=== PATIENT | male | born 1965 | race Caucasian/White ===

== ENCOUNTER 2023-01-16 04:35 | Inpatient (IN) | payer MEDICAID ==
[~2023-01-16] VITALS: Ht 188 cm; Wt 141.8 kg
[2023-01-16] MEDS ORDERED: niCARDipine-NS 40mg/200ml IVPB 200 ML IV PRN (05:10)
[2023-01-16 05:13] LABS: BASOPHILS # (AUTO) 0.1 X10'3 (0-0.2); BASOPHILS % (AUTO) 0.9 % (0-1); EOSINOPHILS # (AUTO) 0.1 X10'3 (0-0.9); EOSINOPHILS % (AUTO) 0.7 % (0-6); HEMATOCRIT 44.6 % (42.0-52.0); HEMOGLOBIN 14.5 g/dl (14.0-17.9); LYMPHOCYTES # (AUTO) 1.7 X10'3 (1.1-4.8); LYMPHOCYTES % (AUTO) 20.2 % (21-51); MEAN CORPUSCULAR HEMOGLOBIN 29.6 PG (27.0-31.0); MEAN CORPUSCULAR HGB CONC 32.5 g/dL (33.0-36.5); MEAN CORPUSCULAR VOLUME 91.1 FL (78-98); MEAN PLATELET VOLUME 6.7 FL (7.4-10.4); MONOCYTES # (AUTO) 0.7 X10'3 (0-0.9); MONOCYTES % (AUTO) 8.3 % (2-12); NEUTROPHILS # (AUTO) 5.9 X10'3 (1.8-7.7); NEUTROPHILS % (AUTO) 69.9 % (42-75); PLATELET COUNT 258 X10'3 (140-440); RED BLOOD COUNT 4.89 X10'6 (4.70-6.10); WHITE BLOOD COUNT 8.4 X10'3 (4.5-11.0)
[2023-01-16 05:36] LABS: ALANINE AMINOTRANSFERASE 25 U/L (12-78); ALBUMIN 2.9 G/DL (3.4-5.0); ALBUMIN/GLOBULIN RATIO 0.6 (1.1-1.5); ALKALINE PHOSPHATASE 94 IU/L (46-116); ANION GAP 9 (8-16); ASPARTATE AMINO TRANSFERASE 16 U/L (10-37); BILIRUBIN,TOTAL 0.7 MG/DL (0.1-1.0); BLOOD UREA NITROGEN 18 MG/DL (7-18); BUN/CREATININE RATIO 18.4 (5.4-32.0); CALCIUM 9.3 MG/DL (8.5-10.1); CHLORIDE 102 MMOL/L (99-107); CREATININE 0.98 MG/DL (0.60-1.10); GLUCOSE 171 MG/DL (70-104); POTASSIUM 4.2 MMOL/L (3.5-5.1); SODIUM 138 MMOL/L (135-145); TOTAL PROTEIN 7.4 G/DL (6.4-8.2); eGFR 79 ML/MIN
[2023-01-16] MEDS ORDERED: proCHLORperazine 10 MG/2 ml inj IV ONE (05:40)
[2023-01-16] MEDS ORDERED: acetaminophen 325mg tablet PO ONE (05:40)
--- NOTE | 2023-01-16 05:57 | NUR ---
Per provider, target systolic 170 initial hour of nicardipine initiation.
[2023-01-16] MEDS ORDERED: CHOL100046 PO (06:05)
[2023-01-16] MEDS ORDERED: SPIR25TA5 PO (06:06)
[2023-01-16] MEDS ORDERED: OLME20TA74 PO (06:06)
[2023-01-16] MEDS ORDERED: METO-384 PO (06:06)
[2023-01-16] MEDS ORDERED: ASPI81TA52 PO (06:07)
--- NOTE | 2023-01-16 06:30 | NUR ---
pt sleeping on his left side without any complaints, nicardipine is currently running at 5mg/hr with a good effect on his BP, 151/102. 94% nasal cannula at 3L, will continue to monitor.
[2023-01-16] MEDS ORDERED: potassium Cl 20 mEq SR tablet PO PRN ×2 (08:15)
[2023-01-16] MEDS ORDERED: potassium Cl 40MEQ/1/2NS 520ml 520 ML IV PRN (08:15)
[2023-01-16] MEDS ORDERED: magnesium Cl slow-release 64mg tablet PO PRN (08:15)
[2023-01-16] MEDS ORDERED: magnesium 4gm in 100ml NS 100 ML IV PRN (08:15)
[2023-01-16] MEDS ORDERED: acetaminophen 325mg tablet PO PRN ×2 (08:15→15:20)
[2023-01-16 08:49] LABS: MAGNESIUM 1.9 MG/DL (1.5-2.4)
[2023-01-16] MEDS ORDERED: EMPA25TA PO (11:34)
[2023-01-16] MEDS ORDERED: ATOR-2 PO (11:34)
--- NOTE | 2023-01-16 11:37 | NUR ---
Patient in room ED 6. I have received report from Kenneth in the ED and had the opportunity to ask questions and assume patient care.
[2023-01-16] MEDS ORDERED: PERFLUTREN PROTEIN-A MICROSPHR (Optison) 0.22 MG/ML 3ML VIAL IV ONE (12:00)
[2023-01-16 12:10] VITALS: BP 117/89
--- NOTE | 2023-01-16 12:22 | NUR ---
PAGER ID: [phone] MESSAGE: RE: Susan in [id number], received from ED, pt has c/o severe cramping in his side, please advise Georgiana
--- NOTE | 2023-01-16 12:33 | NUR ---
Spoke with hospitalist, advised patient's abdominal area cramping seemed to have resolved. Order received -okay to stop Cardene drip. Patient resting now.
[2023-01-16] MEDS: aspirin 81mg, enteric-coated 1 TAB TABLET.DR PO SCH (12:47)
[2023-01-16 12:48] VITALS: BP 117/76
[2023-01-16] MEDS: spironolactone 25 MG tablet PO SCH (12:50)
--- NOTE | 2023-01-16 14:00 | NUR ---
Re: Susan, per color television console monitor, pt has been SR with PVCs and an alternating BBB, sandor Stoner
--- NOTE | 2023-01-16 15:11 | NUR ---
Re: Susan in , he has tylenol for fever, not pain for headache, please advise, Thank you Georgiana
--- NOTE | 2023-01-16 17:03 | NUR ---
Student documentation: [facility] student Mindy I have reviewed and agree with all interventions, medication administration per hospital policy, and assessments performed and documented by student Mindy.
[2023-01-16 18:00] VITALS: BP_SYST 117; BP_SYST 147; BP_DIAS 100; BP_DIAS 76
--- NOTE | 2023-01-16 18:10 | NUR ---
Problems reprioritized. Patient report given, questions answered & plan of care reviewed with Sandra.
[2023-01-16] MEDS: docusate sod 100mg capsule PO SCH (20:00)
[2023-01-16] MEDS: K and/or MAG REPLACEMENT MC SCH (20:00)
[2023-01-16] MEDS: morphine 2 MG/ML inj. syringe IV PRN (20:59)
[2023-01-16 22:00] VITALS: BP 137/84
[2023-01-17 03:00] VITALS: BP 143/94
[2023-01-17 06:00] VITALS: BP 116/89
--- NOTE | 2023-01-17 07:05 | NUR ---
Patient in room PCU 3014. I have received report from Johana and had the opportunity to ask questions and assume patient care.
--- NOTE | 2023-01-17 07:21 | NUR ---
Problems reprioritized. Patient report given, questions answered & plan of care reviewed with Georgiana BOYD.
[2023-01-17 07:25] LABS: BASOPHILS % (AUTO) 0.4 % (0-1); EOSINOPHILS # (AUTO) 0.1 X10'3 (0-0.9); HEMATOCRIT 46.3 % (42.0-52.0); HEMOGLOBIN 15.3 g/dl (14.0-17.9); LYMPHOCYTES # (AUTO) 1.8 X10'3 (1.1-4.8); LYMPHOCYTES % (AUTO) 21.2 % (21-51); MEAN CORPUSCULAR HEMOGLOBIN 30.2 PG (27.0-31.0); MEAN CORPUSCULAR HGB CONC 33.1 g/dL (33.0-36.5); MEAN CORPUSCULAR VOLUME 91.3 FL (78-98); MEAN PLATELET VOLUME 6.7 FL (7.4-10.4); MONOCYTES # (AUTO) 0.7 X10'3 (0-0.9); MONOCYTES % (AUTO) 8.4 % (2-12); NEUTROPHILS # (AUTO) 5.9 X10'3 (1.8-7.7); PLATELET COUNT 254 X10'3 (140-440); RED BLOOD COUNT 5.07 X10'6 (4.70-6.10); WHITE BLOOD COUNT 8.6 X10'3 (4.5-11.0)
[2023-01-17 07:47] LABS: ALBUMIN 2.9 G/DL (3.4-5.0); ANION GAP 7 (8-16); BLOOD UREA NITROGEN 15 MG/DL (7-18); BUN/CREATININE RATIO 15.5 (5.4-32.0); CALCIUM 9.2 MG/DL (8.5-10.1); CHLORIDE 102 MMOL/L (99-107); CREATININE 0.97 MG/DL (0.60-1.10); GLUCOSE 140 MG/DL (70-104); MAGNESIUM 1.8 MG/DL (1.5-2.4); POTASSIUM 4.3 MMOL/L (3.5-5.1); SODIUM 137 MMOL/L (135-145); eGFR 79 ML/MIN
[2023-01-17] MEDS: K and/or MAG REPLACEMENT MC SCH ×2 (08:00→18:50)
[2023-01-17] MEDS: furosemide 40mg/4ml inj IV SCH (08:17)
[2023-01-17] MEDS: docusate sod 100mg capsule PO SCH ×2 (08:18→18:50)
[2023-01-17] MEDS: spironolactone 25 MG tablet PO SCH (08:18)
[2023-01-17] MEDS: metoprolol succinate 25mg (24-HOUR) SR. Tablet PO SCH (08:19)
[2023-01-17] MEDS: aspirin 81mg, enteric-coated 1 TAB TABLET.DR PO SCH (08:19)
[2023-01-17] MEDS: losartan 50mg tablet PO SCH (08:19)
[2023-01-17] MEDS: morphine 2 MG/ML inj. syringe IV PRN ×2 (08:30→15:55)
[2023-01-17 09:00] VITALS: BP 150/103
--- NOTE | 2023-01-17 11:31 | NUR ---
DAYAN Davis in , having c/o cramping pain in L rib area, has become very agitated, too soon for more ordered morphine, please advise Georgiana
[2023-01-17] MEDS: cyclobenzaprine 10mg tablet PO PRN (12:00)
--- NOTE | 2023-01-17 13:57 | NUR ---
patient has c/o pain in his left rib area, sig. other arrived, requesting more/other pain meds due to patient's large habitus, patient is quite irritable, ripped off gown, tele box, will not let RN attempt to discuss options/alternatives
--- NOTE | 2023-01-17 13:58 | NUR ---
Patient became more agitated, demanding a new gown/clean up after urinating on himself and the floor. Patient complained that staff had replaced the lid on the urinal so he could not get it off therefore he urinated on himself. Earlier, patient complained that he "spilled" urine all over himself and the floor because he filled them too full. 3 different urinals were only partially with 300 mLs. Patient became quite unruly and unpleasant with staff before falling back asleep.
[2023-01-17 14:03] VITALS: BP 150/69
[2023-01-17 18:00] VITALS: BP 135/94
--- NOTE | 2023-01-17 18:37 | NUR ---
Problems reprioritized. Patient report given, questions answered & plan of care reviewed with Daphnie.
[2023-01-18 06:42] LABS: BASOPHILS % (AUTO) 0.2 % (0-1); EOSINOPHILS # (AUTO) 0.1 X10'3 (0-0.9); EOSINOPHILS % (AUTO) 0.7 % (0-6); HEMATOCRIT 49.5 % (42.0-52.0); HEMOGLOBIN 16.5 g/dl (14.0-17.9); LYMPHOCYTES # (AUTO) 2.1 X10'3 (1.1-4.8); LYMPHOCYTES % (AUTO) 25.3 % (21-51); MEAN CORPUSCULAR HEMOGLOBIN 30.6 PG (27.0-31.0); MEAN CORPUSCULAR HGB CONC 33.3 g/dL (33.0-36.5); MEAN CORPUSCULAR VOLUME 91.9 FL (78-98); MEAN PLATELET VOLUME 6.9 FL (7.4-10.4); MONOCYTES # (AUTO) 0.7 X10'3 (0-0.9); NEUTROPHILS # (AUTO) 5.3 X10'3 (1.8-7.7); NEUTROPHILS % (AUTO) 64.8 % (42-75); PLATELET COUNT 278 X10'3 (140-440); RED BLOOD COUNT 5.39 X10'6 (4.70-6.10); RED CELL DISTRIBUTION WIDTH 15.4 % (11.5-14.5); WHITE BLOOD COUNT 8.2 X10'3 (4.5-11.0)
[2023-01-18 07:06] LABS: ANION GAP 7 (8-16); BLOOD UREA NITROGEN 25 MG/DL (7-18); BUN/CREATININE RATIO 21.9 (5.4-32.0); CALCIUM 9.5 MG/DL (8.5-10.1); CHLORIDE 102 MMOL/L (99-107); CREATININE 1.14 MG/DL (0.60-1.10); GLUCOSE 145 MG/DL (70-104); MAGNESIUM 2.1 MG/DL (1.5-2.4); POTASSIUM 4.4 MMOL/L (3.5-5.1); SODIUM 136 MMOL/L (135-145); TOTAL CARBON DIOXIDE 27.3 MMOL/L (24-32); eGFR 66 ML/MIN
[2023-01-18 07:53] VITALS: BP 132/83
[2023-01-18] MEDS: K and/or MAG REPLACEMENT MC SCH ×2 (08:00→20:00)
[2023-01-18] MEDS: aspirin 81mg, enteric-coated 1 TAB TABLET.DR PO SCH (08:46)
[2023-01-18] MEDS: docusate sod 100mg capsule PO SCH ×2 (08:46→20:00)
[2023-01-18] MEDS: losartan 50mg tablet PO SCH (08:47)
[2023-01-18] MEDS: metoprolol succinate 25mg (24-HOUR) SR. Tablet PO SCH (08:47)
[2023-01-18] MEDS: furosemide 40mg/4ml inj IV SCH (08:47)
[2023-01-18] MEDS: spironolactone 25 MG tablet PO SCH (08:48)
[2023-01-18] MEDS: cyclobenzaprine 10mg tablet PO PRN (09:56)
[2023-01-18] MEDS: morphine 2 MG/ML inj. syringe IV PRN (10:16)
[2023-01-18] MEDS ORDERED: CYCL-1 PO (10:45)
[2023-01-18 11:05] VITALS: BP 105/66
[2023-01-18] MEDS ORDERED: FURO-150 PO (12:58)
[2023-01-18 15:29] VITALS: BP 141/85
[2023-01-18] MEDS ORDERED: LISI2.5T14 PO (19:30)
[2023-01-18] MEDS ORDERED: HYDROcodone/acetaminophen 5mg/325mg tablet PO ONE (21:00)
== END 2023-01-18 22:00 | disposition home or self-care (01) | DRG 133 ==
LOC: ER 04:36 → ED HOLD 08:17 → EDBEDREQ 11:09 → PCU 3S 12:18
PROVIDERS: ADMIT Internal Medicine; ATTEND Internal Medicine
DX: J96.00 Acute respiratory failure, unspecified whether with hypoxia or hypercapnia (principal); I21.A1 Myocardial infarction type 2; I50.23 Acute on chronic systolic (congestive) heart failure; N17.9 Acute kidney failure, unspecified; I11.0 Hypertensive heart disease with heart failure; F17.210 Nicotine dependence, cigarettes, uncomplicated; E66.01 Morbid (severe) obesity due to excess calories; G89.29 Other chronic pain; I44.7 Left bundle-branch block, unspecified; R25.2 Cramp and spasm; M54.9 Dorsalgia, unspecified; Z79.82 Long term (current) use of aspirin; I25.2 Old myocardial infarction; Z68.41 Body mass index [BMI] 40.0-44.9, adult; Z79.84 Long term (current) use of oral hypoglycemic drugs; Z91.14 Patient's other noncompliance with medication regimen; Z79.899 Other long term (current) drug therapy
CPT/HCPCS: 36415; 71045; 80048; 80053; 83735; 83880; 84484; 85025; 87081; 93005; 93308; 96365; 96375; 99285; A4615; G0378; J0780; J1940; J2270; J3490

== ENCOUNTER 2025-04-25 15:06 | Inpatient (IN) | payer MEDICAID ==
[~2025-04-25] VITALS: Ht 188 cm; Wt 136.4 kg
[~2025-04-25 15:06] MED LIST: ASPI81TA52 PO; ATOR-2 PO; CHOL100046 PO; CYCL-1 PO; EMPA25TA PO; FURO-150 PO; LISI2.5T14 PO; METO-384 PO; OLME20TA74 PO; SPIR25TA5 PO
--- NOTE | 2025-04-25 15:26 | Physician Documentation ---
History of Present Illness Chief Complaint: Abdominal Pain Stated Complaint: ABD PAIN Time Seen by MD: 15:23 HPI 59-year-old male, history of COPD, CHF, CAD, methamphetamine use, who is transferred from an outside hospital with concern for cholecystitis. The patient reportedly had upper abdominal pain, presented to the ER at an outside hospital and had an extensive workup. Ultrasound showed cholecystitis. His laboratory testing showed white blood cell count 8.9, bilirubin 1.9, AST 51, ALT 63. He also had an elevated BNP at 5310, does have history of CHF. He also was positive for methamphetamines. The outside hospital did not have a surgeon, and so he was transferred here for surgical consult. He also reportedly had a CT scan of his chest abdomen and pelvis, with no radiology report, but no acute findings identified on preliminary evaluation. Here in the ED, he continues to report pain in his upper abdomen. He is a difficult historian, reports a fluctuating history of abdominal pain. Denies significant nausea at this time. Denies shortness of breath or chest pain at this time. He is on oxygen, but states he normally does not use oxygen. Medication Reconciliation Allergies: Coded Allergies: No Known Allergies (Unverified , 01/16/23) Scheduled Aspirin (Aspirin EC), 1 TAB PO DAILY, (Reported) Atorvastatin Calcium (Atorvastatin Calcium), 1 TAB PO DAILY, (Reported) Cholecalciferol (Vitamin D3) (Vitamin D3), 2 CAP PO DAILY, (Reported) Empagliflozin (Jardiance), 1 TAB PO DAILY, (Reported) Furosemide (Lasix), 20 MG PO DAILY Lisinopril (Lisinopril), 1 TAB PO DAILY Metoprolol Succinate (Metoprolol Succinate), 1 TAB PO DAILY, (Reported) Olmesartan Medoxomil (Benicar), 1 TAB PO DAILY, (Reported) Spironolactone (Spironolactone), 1 TAB PO DAILY, (Reported) Scheduled PRN Cyclobenzaprine* (Cyclobenzaprine*), 10 MG PO Q8H PRN for muscle spasms Past Medical History Past Medical History: Congestive Heart Failure, Hypertension, Myocardial Infarction, *MUSCULOSKELETAL*, Chronic Back Pain, Extremity Fracture Past Surgical History: abdominal surgery, orthopedic surgeries Lives In: Home Review of Systems Constitutional: Denies: fever Respiratory: Denies: shortness of breath Cardiovascular: Denies: chest pain Gastrointestinal: Reports: abdominal pain, nausea; Denies: vomiting Physical Exam Vital Signs: Temperature: 98.5, Source: Oral, Heart Rate: 82, Respiratory Rate: 18, BP: 99/63, Pulse Oximetry: 94, Weight: 136.360 Oxygen Flow Rate: 4.0 Physical Exam General: This is a middle-aged man, lying quietly in bed when I enter the room, not in distress HEENT: Atraumatic, oropharynx appears dry Heart: Regular rate and rhythm, normal-appearing peripheral perfusion Lungs: Diminished breath sounds bilateral, normal work of breathing, normal oxygen saturation on nasal cannula oxygen Abdomen: Soft, obese abdomen. Generalized tenderness, worse in the upper abdomen. Well-healed surgical scar over the abdomen Neuro: Alert and oriented, no focal deficits Psychiatric: Calm and cooperative with exam Progress Results/Orders Results/Orders Vital Signs 04/25/25 15:14 Temp 98.5 Pulse 82 Resp 18 B/P (MAP) 99/63 Pulse Ox 94 O2 Flow Rate 4.0 Consults/PCP Consults/PCP : Additional Comment Consult: I consulted the general surgeon for evaluation for cholecystitis Consult: I spoke to the internal medicine service, for admission in the hospital Medical Decision Making Additional info obtained from: old records Findings Reviewed outside hospital records. The patient had an extensive workup, including blood work, ultrasound, CT scan. Ultrasound showed cholelithiasis with sonographic Boothe sign and gallbladder wall thickening with adjacent pericholecystic fluid, concerning for acute cholecystitis. Common bile duct not identified. Additional Comments The patient presents as a transfer from outside hospital for acute cholecystitis. I reviewed the outside hospital paperwork as above. Repeat labs do show elevated LFTs and he continues to have upper abdominal pain. General surgery consulted and he will be admitted to the medicine service for further treatment. He was given a dose of IV Zosyn, because it appears he did not receive antibiotics at the outside hospital. He was given pain medications. Admit. Departure Impression: Primary Impression: Acute cholecystitis Referrals: NO PRIMARY CARE PROVIDER (PCP) Signature Scribe Signature: na Attestation: ERICK Samuel MD Apr 25, 2025 15:26
[2025-04-25 16:08] LABS: BASOPHILS % (AUTO) 0.2 % (0-1); EOSINOPHILS % (AUTO) 0.1 % (0-6); HEMATOCRIT 46.1 % (42.0-52.0); HEMOGLOBIN 15.3 g/dl (14.0-17.9); LYMPHOCYTES # (AUTO) 1.5 X10'3 (1.1-4.8); LYMPHOCYTES % (AUTO) 15.8 % (21-51); MEAN CORPUSCULAR HEMOGLOBIN 29.7 PG (27.0-31.0); MEAN CORPUSCULAR HGB CONC 33.2 g/dL (33.0-36.5); MEAN CORPUSCULAR VOLUME 89.6 FL (78-98); MEAN PLATELET VOLUME 7.2 FL (7.4-10.4); MONOCYTES # (AUTO) 0.8 X10'3 (0-0.9); MONOCYTES % (AUTO) 8.1 % (2-12); NEUTROPHILS # (AUTO) 7.2 X10'3 (1.8-7.7); NEUTROPHILS % (AUTO) 75.8 % (42-75); PLATELET COUNT 243 X10'3 (140-440); RED BLOOD COUNT 5.15 X10'6 (4.70-6.10); WHITE BLOOD COUNT 9.5 X10'3 (4.5-11.0)
--- NOTE | 2025-04-25 16:12 | ELECTROCARDIOGRAPH REPORT ---
[facility] Test Date: 2025-04-25 Test Time: 16:10:42 Pat Name: HEMNAT MARTIN Department: EMERGENCY ROOM Room: Gender: M Customer Retention Representative: CONSTANTINE : 1965 Requested By: ERICK CURIEL Order Number: [id number] Reading MD: Measurements Intervals [place] Rate: 94 P: 42 RI: 183 QRS: 97 QRSD: 185 T: -89 QT: 440 QTc: 551 Interpretive Statements Sinus rhythm Nonspecific intraventricular conduction delay ST depr, consider ischemia, inferior leads Please click the below link to view image of tracing.
[2025-04-25] MEDS: piperacillin/tazo 4.5gm/100ml 100 ML IV SCH (16:20)
[2025-04-25] MEDS: HYDROmorphone 1 mg/ml syringe IV ONE (16:20)
[2025-04-25 16:25] LABS: ALANINE AMINOTRANSFERASE 305 U/L (12-78); ALBUMIN/GLOBULIN RATIO 0.7 (1.1-1.5); ANION GAP 9 (8-16); ASPARTATE AMINO TRANSFERASE 235 U/L (10-37); BILIRUBIN,TOTAL 1.9 MG/DL (0.1-1.0); BLOOD UREA NITROGEN 25 MG/DL (7-18); BUN/CREATININE RATIO 15.2 (10.0-20.0); CALCIUM 8.8 MG/DL (8.5-10.1); CHLORIDE 103 MMOL/L (99-107); CREATININE 1.64 MG/DL (0.60-1.10); GLUCOSE 103 MG/DL (70-104); POTASSIUM 5.2 MMOL/L (3.5-5.1); SODIUM 140 MMOL/L (135-145); TOTAL CARBON DIOXIDE 27.6 MMOL/L (24-32); TOTAL PROTEIN 7.3 G/DL (6.4-8.2); eCRCL 56 ML/MIN; eGFR 43 ML/MIN
[2025-04-25 16:26] LABS: ALKALINE PHOSPHATASE 111 IU/L (46-116); LIPASE 21 U/L (16-77)
[2025-04-25 16:37] LABS: INR 1.2 INR; PROTHROMBIN TIME 11.9 SECONDS (9.0-12.0)
[2025-04-25] MEDS ORDERED: acetaminophen 325mg tablet PO PRN (16:55)
[2025-04-25] MEDS ORDERED: magnesium Cl slow-release 64mg tablet PO PRN (16:55)
[2025-04-25] MEDS ORDERED: magnesium sulf-water 4G/100mL 100 ML IV PRN (16:55)
[2025-04-25] MEDS ORDERED: magnesium sulf-water 2g/50mL 50 ML IV PRN (16:55)
[2025-04-25] MEDS ORDERED: magnesium hydroxide 30ml (MOM) UD suspension PO PRN (16:55)
[2025-04-25] MEDS ORDERED: mag hydrox/Alum hydrox/simeth 30ml oral suspension PO PRN (16:55)
[2025-04-25] MEDS ORDERED: potassium Cl 20 mEq SR tablet PO PRN ×2 (16:55)
[2025-04-25] MEDS ORDERED: potassium Cl 40MEQ/1/2NS 520ml 520 ML IV PRN (16:55)
[2025-04-25] MEDS: normal saline 1000ml 1,000 ML IV SCH (17:25)
--- NOTE | 2025-04-25 17:48 | HISTORY AND PHYSICAL-Residence ---
History & Physical Providers to CC Resident Creating Document: FLEX CASE, RES ~ History of Present Illness Primary Medical Doctor: PCP: Samantha vance. Script Developer: Dr. lane Reason for Admit\Complaint: Abdominal pain History of Present Illness PCP: Samantha vance Script Developer: Dr. Lane 59-year-old male patient with past medical history of systolic congestive heart failure, dyslipidemia, hypertension came to the hospital transferred from [facility] with chief complaint of abdominal pain. The patient states that he has been experiencing abdominal pain on and off for the last one month, usually before bed, not sure if associated with food. This morning he states that he experienced abdominal pain as per patient in the lower abdomen 9/10 in intensity, without radiation, described as a colicky type, he denies any changes in urine or bowel movements. The patient states that while he experienced this pain he noticed some dizziness, subjective fever and sweating. During the evaluation he had colicky type pain and the patient was pointing to the level of the epigastrium. He currently denies any chest pain, shortness of breath, palpitations, urinary or intestinal symptoms. Allergies: Coded Allergies: No Known Allergies (Unverified , 01/16/23) Home Medications Home Medications Active Lisinopril 2.5 Mg Tablet 1 Tab PO DAILY 30 Days Lasix (Furosemide) 20 Mg Tablet 20 Mg PO DAILY 30 Days Cyclobenzaprine* (Cyclobenzaprine HCl) 10 Mg Tablet 10 Mg PO Q8H PRN 5 Days Reported Jardiance (Empagliflozin) 25 Mg Tablet 1 Tab PO DAILY Atorvastatin Calcium 80 Mg Tablet 1 Tab PO DAILY 30 Days Aspirin EC (Aspirin) 81 Mg Tablet.dr 1 Tab PO DAILY 30 Days Spironolactone 25 Mg Tablet 1 Tab PO DAILY 30 Days Metoprolol Succinate 50 Mg Tab.sr.24h 1 Tab PO DAILY 30 Days Benicar (Olmesartan Medoxomil) 20 Mg Tablet 1 Tab PO DAILY 30 Days Vitamin D3 (Cholecalciferol (Vitamin D3)) 25 Mcg Capsule 2 Cap PO DAILY 30 Days Past Medical History Past Medical History Systolic congestive heart failure with the EF of 35%. Dyslipidemia. Hypertension. Past Surgical History Surgical History Comment Back surgery. Left ribs surgery. As per patient he was stopped 12 years ago in the back reason for which he got his surgery at the level of his ribs. Past Social History Smoking: Quit greater than 1 year (As per patient he quit smoking one year ago. He used to smoke one pack a day.) Alcohol Use: Sober (As per patient he drinks beer once every two months.) Drug Use: Methamphetamine (The patient confirms history of methamphetamine use. 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 HEENT: Conjunctive are pink, sclerae clear, no icterus, pupil is equal in both sides, reactive to light, no ear discharge, no pharyngeal erythema or an edema. Neck: Supple, no JVD, no lymphadenopathy and thyromegaly. Chest: Equal air entry on both lungs, no additional sounds no rhonchi no wheezing at the moment, presence of scar in the left posterior side of the chest. Cardiovascular: S1-S2 regular sinus rhythm and, regular rate, no gallops, no rubs, no murmurs Abdomen: No visible peristalsis, Bowel sounds present on auscultation, soft, Mc Boothe sign positive, no guarding, no rigidity, presence of ventral abdominal hernia 4 x 4 cm in diameter easily reducible. Presence of scar in the midline of the abdomen from previous surgery. Extremities: No obvious deformities, 2+ pedal edema bilaterally, capillary refill intact, peripheral pulsations are intact on both sides Central Nervous System: No focal neurological deficits, no motor or sensory weakness in all 4 extremities, could move all 4 extremities, 2+ deep tendon reflexes, negative Babinski. Musculoskeletal: No joint swelling, deformities, inflammations, and no scoliosis and back tenderness Skin: Warm and dry. Diagnostic Data Last Recorded Lab Results: 04/25/25 1559 04/25/25 1559 Diagnostic Data: Laboratory Tests Test 04/25/25 15:59 Prothrombin Time 11.9 SECONDS (9.0-12.0) INR International Normalized Ratio 1.2 INR Coagulation Comments Advance Care Planning Advanced Care plannin - 30 Minutes (I spent a total of 17 minutes on reviewing various resuscitative measures/ACP with the patient at the time of admission. The patient has decided on a full code status.) Additional Plan Assessment and plan: 59 years old male patient came to the hospital transferred from [facility] due to abdominal pain. Abdominal pain: Acute cholecystitis: The patient came to the hospital with chief complaint of abdominal pain. Mc Boothe sign positive. Abdominal ultrasound performed at the other facility: Suboptimal evaluation due to body habitus. Cholelithiasis with sonographic Boothe's sign and gallbladder wall thickening with adjacent pericholecystic fluid. Findings concerning for acute cholecystitis. Elevated liver function tests: AST 235, ALT 305, total bilirubin 1.9. Follow-up he scan and CT scan of the abdomen. Surgeon: Dr. Apodaca consulted by ER physician. Zosyn IV t.i.d. Culturelle [id number] mmu b.i.d. Pain control with morphine. Acute kidney injury likely secondary to dehydration: Creatinine 1.64, GFR 43, BUN/creatinine ratio 15.2. Follow-up urine lytes. NS at 20 mL/hour. Follow-up proBNP and echocardiogram. History of methamphetamine use: Systolic congestive heart failure with ejection fraction of 35%: Echocardiogram in 01/16/2023: Tricuspid valve appears grossly normal with trace regurgitation. Mild mitral valve annular calcification without gross stenosis. Trace regurgitation. Probable trileaflet aortic valve that appears sclerotic without gross stenosis. No insufficiency appreciated. Measurements are estimates due to poor image quality. Recommend clinical correlation. Left atrium appears mildly dilated. Right ventricle appears to be mildly dilated. Estimated PA systoic pressure is 24 mmHg. Left ventricle is dilated with moderate concentric hypertrophy. Left ventricular systolic function appears to be moderately decreased. Overall LVEF appears to be around 35%. The Aortic root measures 3.7 cm. Ascending aorta is dilated and measures at 3.8 cm. Follow-up U tox and ETOH levels. We will continue GDMT after med reconciliation. Dyslipidemia: Follow-up lipid panel. We will continue atorvastatin 80 mg daily after med reconciliation. Code status: Full code DVT prophylaxis: SCDs Analgesia/sedation: Morphine Line/tube: PIV GI prophylaxis: None Nutrition: Clear liquid diet. NPO after midnight. PT: Ordered Prognosis: Guarded Disposition: The patient will be admitted to ortho floor with telemetry. Flex Carey Internal Medicine Resident [facility] Date of Service: Apr 25, 2025 Billing Provider: CHARLES BUTLER MD Common Visit Codes: 69477-GLYHAEI INP/OBS CARE (HIGH) Secondary Visit Codes: 77796-WTLTBEHQ CARE PLAN 30 MINUTES FLEX CASE, RES Apr 25, 2025 17:48 CHARLES BUTLER MD Apr 25, 2025 18:21
[2025-04-25 18:04] LABS: BILIRUBIN,URINE NEGATIVE (Neg); CLARITY,URINE CLEAR (Clear); COLOR,URINE YELLOW (Yellow); GLUCOSE, URINE >=1000 mg/dl (Neg); KETONES,URINE NEGATIVE (Neg); LEUKOCYTE ESTERASE ,URINE NEGATIVE (Neg); NITRITES, URINE NEGATIVE (Neg); OCCULT BLOOD,URINE NEGATIVE (Neg); PH,URINE 5.5 (4.8-8.0); PROTEIN,URINE NEGATIVE (Neg); UROBILINOGEN,URINE 0.2 E.U/dL (0.2-1.0)
[2025-04-25 18:06] LABS: UA COLLECTION TYPE URINAL
[2025-04-25 18:24] LABS: BACTERIA,URINE NONE SEEN /HPF (Neg); RBC,URINE NONE SEEN /HPF (0-2); SQUAMOUS EPITHELIAL CELL,UR FEW /LPF (FEW); WBC,URINE 0-4 /HPF (0-4)
[2025-04-25 18:26] LABS: TOTAL PROTEIN,URINE RANDOM 15.9 MG/DL; URINE AMPHETAMINE SCREEN POSITIVE (Neg); URINE BARBITUATE SCREEN NEGATIVE (Neg); URINE BENZODIAZEPINES SCREEN NEGATIVE (Neg); URINE CANNABINOID SCREEN NEGATIVE (Neg); URINE COCAINE SCREEN NEGATIVE (Neg); URINE METHADONE SCREEN NEGATIVE (Neg); URINE OPIATE SCREEN NEGATIVE (Neg); URINE PHENCYCLIDINE SCREEN NEGATIVE (Neg)
[2025-04-25 18:32] LABS: OSMOLALITY 291 MOSM/K (280-300)
[2025-04-25 18:35] LABS: ETHANOL < 10 MG/DL (<10); PRO BRAIN NATRIURETIC PEPTIDE 5755 PG/ML (0-125)
[2025-04-25 18:38] LABS: HEMOGLOBIN A1C 6.2 % (4.5-6.2)
--- NOTE | 2025-04-25 18:50 | RADIOLOGY REPORT ---
EXAM: CT Abdomen and Pelvis Without Intravenous Contrast CLINICAL INDICATION: abdominal pain TECHNIQUE: Axial computed tomography images of the abdomen and pelvis without intravenous contrast. This CT exam was performed using one or more of the following dose reduction techniques: automated exposure control, adjustment of the mA and/or kV according to patient size, and/or use of iterative r econstruction technique. CONTRAST: COMPARISON: None FINDINGS: LUNG BASES: See below. PLEURAL SPACE: Bilateral pleural effusion with compressive atelectasis. MEDIASTINUM: Small esophageal hiatal hernia. ABDOMEN: LIVER: Hepatomegaly with fatty infiltration. GALLBLADDER AND BILE DUCTS: Cholelithiasis with subtle surrounding fat stranding lateral and inferi or to the gallbladder. Correlation for acute cholecystitis is recommended. No ductal dilation. PANCREAS: Unremarkable. No ductal dilation. SPLEEN: Unremarkable. No splenomegaly. ADRENALS: Unremarkable. No mass. KIDNEYS AND URETERS: Bilateral renal pelvic calculi, largest measuring up to 4 mm without obstructi on. STOMACH AND BOWEL: Anterior ventral hernia of the upper abdomen containing fat and bowel. No bowel obstruction. Fecal retention in the colon consistent with constipation. No mucosal thickening. PELVIS: APPENDIX: No findings to suggest acute appendicitis. BLADDER: Unremarkable. No stones. REPRODUCTIVE: Unremarkable as visualized. ABDOMEN and PELVIS: INTRAPERITONEAL SPACE: Unremarkable. No free air. No significant fluid collection. BONES/JOINTS: No acute fracture. No dislocation. SOFT TISSUES: Anterior ventral hernia of the lower mid abdomen containing fat. VASCULATURE: Unremarkable. No abdominal aortic aneurysm. LYMPH NODES: Unremarkable. No enlarged lymph nodes. OTHER FINDINGS: . . . IMPRESSION: 1. Cholelithiasis with subtle surrounding fat stranding lateral and inferior to the gallbladder. Cor relation for acute cholecystitis is recommended. 2. Anterior ventral hernia of the upper abdomen containing fat and bowel. No bowel obstruction. 3. Small esophageal hiatal hernia. 4. Hepatomegaly with fatty infiltration. 5. Bilateral renal pelvic calculi, largest measuring up to 4 mm without obstruction. 6. Anterior ventral hernia of the lower mid abdomen containing fat. 7. Fecal retention in the colon consistent with constipation. 8. Bilateral pleural effusion with compressive atelectasis.
[2025-04-25 18:59] LABS: BILIRUBIN,DIRECT 0.4 MG/DL (0-0.3); THYROID STIMULATING HORMONE 5.02 ulU/ml (0.34-4.50)
[2025-04-25 19:15] VITALS: BP 115/82; PULSE 73; RESP 15; TEMP 98.7; O2SAT 95
[2025-04-25] MEDS: K and/or MAG REPLACEMENT MC SCH (20:00)
--- NOTE | 2025-04-25 20:05 | RADIOLOGY REPORT ---
CHEST RADIOGRAPH REASON FOR EXAM: sob COMPARISON: CHEST,SINGLE VIEW on DOS: 01/16/23 TECHNIQUE: One view of the chest is provided FINDINGS: The cardiomediastinal silhouette is enlarged, similar to the prior study. There is pulmonar y venous congestion. There is possible mild pulmonary edema. There is no large pleural effusion. Ther e is no pneumothorax. No focal consolidation is identified. There are multiple old healed rib fractur es. There is old healed fracture of the right clavicle. IMPRESSION: Cardiomegaly with pulmonary venous congestion and possible mild pulmonary edema. No large pleural eff usion.
[2025-04-25] MEDS: docusate sod 100mg capsule PO SCH (20:49)
[2025-04-25] MEDS: ondansetron/PF 4mg/2ml inj IV PRN (20:50)
[2025-04-25] MEDS: lactobacillus rhamnosus 10,000 MMU CELLS/CAPSULE PO SCH (20:50)
[2025-04-25] MEDS: morphine 2 MG/ML inj. syringe IV PRN (21:07)
[2025-04-25 22:00] VITALS: BP 127/82; PULSE 89; RESP 16; TEMP 98.8; O2SAT 97
[2025-04-25] MEDS: piperacillin/tazo 3.375gm/50ml 50 ML IV SCH (23:49)
[2025-04-26 05:04] LABS: BASOPHILS % (AUTO) 0.2 % (0-1); EOSINOPHILS % (AUTO) 0.1 % (0-6); HEMATOCRIT 43.2 % (42.0-52.0); HEMOGLOBIN 14.5 g/dl (14.0-17.9); LYMPHOCYTES # (AUTO) 2.1 X10'3 (1.1-4.8); LYMPHOCYTES % (AUTO) 20.5 % (21-51); MEAN CORPUSCULAR HEMOGLOBIN 30.1 PG (27.0-31.0); MEAN CORPUSCULAR HGB CONC 33.6 g/dL (33.0-36.5); MEAN CORPUSCULAR VOLUME 89.8 FL (78-98); MEAN PLATELET VOLUME 7.4 FL (7.4-10.4); MONOCYTES # (AUTO) 0.9 X10'3 (0-0.9); MONOCYTES % (AUTO) 8.8 % (2-12); NEUTROPHILS # (AUTO) 7.2 X10'3 (1.8-7.7); NEUTROPHILS % (AUTO) 70.4 % (42-75); PLATELET COUNT 232 X10'3 (140-440); RED BLOOD COUNT 4.81 X10'6 (4.70-6.10); RED CELL DISTRIBUTION WIDTH 15.1 % (11.5-14.5); WHITE BLOOD COUNT 10.3 X10'3 (4.5-11.0)
[2025-04-26 05:42] LABS: ALBUMIN 2.7 G/DL (3.4-5.0); ALBUMIN/GLOBULIN RATIO 0.7 (1.1-1.5); ALKALINE PHOSPHATASE 96 IU/L (46-116); ANION GAP 11 (8-16); BILIRUBIN,TOTAL 2.8 MG/DL (0.1-1.0); BLOOD UREA NITROGEN 35 MG/DL (7-18); BUN/CREATININE RATIO 21.2 (10.0-20.0); CHLORIDE 100 MMOL/L (99-107); CREATININE 1.65 MG/DL (0.60-1.10); GLUCOSE 97 MG/DL (70-104); MAGNESIUM 2.1 MG/DL (1.5-2.4); SODIUM 132 MMOL/L (135-145); TOTAL CARBON DIOXIDE 21.1 MMOL/L (24-32); TOTAL PROTEIN 6.6 G/DL (6.4-8.2); eCRCL 55 ML/MIN; eGFR 43 ML/MIN
[2025-04-26 05:52] LABS: ALANINE AMINOTRANSFERASE 1670 U/L (12-78); ASPARTATE AMINO TRANSFERASE 1993 U/L (10-37); POTASSIUM 5.2 MMOL/L (3.5-5.1)
[2025-04-26 06:00] VITALS: BP 147/89; PULSE 94; RESP 21; TEMP 98.9; O2SAT 98
[2025-04-26 07:30] LABS: CHOL/HDL RATIO 2.7 (0.00-4.99); CHOLESTEROL 112 MG/DL (0-200); HDL CHOLESTEROL 41 MG/DL (35-60); LDL CHOLESTEROL 61 MG/DL (50-100); TRIGLYCERIDES 82 MG/DL (20-135)
[2025-04-26] MEDS ORDERED: HYDROcodone/acetaminophen 5mg/325mg tablet PO PRN (07:55)
[2025-04-26 08:00] VITALS: RESP 18; O2SAT 98
[2025-04-26 08:42] LABS: FREE T4 (FREE THYROXINE) 1.09 NG/DL (0.73-1.40)
[2025-04-26 10:00] VITALS: BP 138/86; PULSE 67; RESP 16; O2SAT 97
[2025-04-26] MEDS: HYDROcodone/acetaminophen 10/325mg tab PO PRN (10:11)
--- NOTE | 2025-04-26 10:37 | RADIOLOGY REPORT ---
Procedure: NM NM HIDA SCAN Exam Date: 04/26/2025 09:18 AM Clinical History: Cholecystitis Comparison Study: None Nuclear Medicine Hepatobiliary Scan. Technique: Following the intravenous administration of 6 mCi of technetium 99m labeled Choletec multiple planar abdominal planar images were obtained in anterior projection in 5 minute intervals for30 minutes . Findings: The liver appears grossly normal in size. There is no abnormal persistence of the cardiac or blood po ol activity. There is prompt visualization of the gallbladder. Impression: There is prompt visualization of the gallbladder suggesting patency of cystic duct and no acute chino cystitis. Examination was performed for only 30 minutes and there is no definitive visualization of small bowel . Common bile duct obstruction is not completely excluded. Clinical correlation advised. MRCP or ER CP could be performed to further evaluate if clinically indicated. Alternatively, delayed nuclear med icine images could be obtained.
--- NOTE | 2025-04-26 12:43 | CONSULTATION REPORT ---
Cardiac Consultation Report Providers to CC ~ Subjective Subjective Anesthesiology/surgical request for preoperative cardiovascular evaluation. 59-year-old male transferred here from [facility] plans for cholecystectomy. He was here a year ago medically nonadherent which time I actually saw him in consultation and told him he needs to take his medications. Ejection fraction once again is 35% and there is concern. However this is completely unchanged. His diagnosis on last admission was acute on chronic systolic congestive heart failure ejection fraction 35%. Type 2 troponin rise from heart failure respiratory insufficiency from heart failure accelerated hypertension because he did not take his medications morbid obesity status post multiple rib fractures with chronic pain. Transient renal insufficiency improved however never returned to normal. On transfer paperwork there is mention of positive methamphetamines which he denies. In the past his medications were lisinopril cyclobenzaprine aspirin atorvastatin Jardiance metoprolol succinate olmesartan spironolactone. Presently is lying in bed on his right side comfortable on oxygen 2 L/min. He does not have any anginal symptoms no tachyarrhythmia symptoms. Objective Vitals Vital Signs Date Time Temp Pulse Resp B/P (MAP) Pulse Ox O2 Delivery O2 Flow Rate FiO2 04/26/25 12:32 20 04/26/25 10:00 67 138/86 (103) 97 Room Air 04/26/25 08:00 4.0 04/26/25 06:00 98.9 Lab Results: 04/26/25 0427 04/26/25 0427 Objective Carotid no bruit chest clear to auscultation percussion heart no murmur heard no S3 gallop no rub abdomen mildly tender right upper quadrant bowel sounds present. No peripheral edema. Peripheral pulses intact. No lateralizing sign of a stroke. Coagulation Studies Laboratory Tests Test 04/25/25 15:59 Prothrombin Time 11.9 SECONDS (9.0-12.0) INR International Normalized Ratio 1.2 INR Coagulation Comments Problem\Assessment\Plan Additional Plan Impression chronic congestive heart failure no acute exacerbation. Creatinine a little bit worse than a year ago. Recommendation: No cardiac contraindication to proceed with surgery as his needed. Continued medical therapy. Time of discharge follow up with his PMD ERICK FARLEY MD Apr 26, 2025 12:43
--- NOTE | 2025-04-26 12:43 | PROGRESS NOTE- Residence ---
Progress Note - Resident Providers to CC Resident Creating Document: RENE CASE, MATT ~ Antibiotic Timeout Antibiotic Ordered?: Yes Subjective The patient has been evaluated at the bedside. The patient reports pain 3/10 in intensity localized in the right upper quadrant. Objective Vital Signs Date Time Temp Pulse Resp B/P (MAP) Pulse Ox O2 Delivery O2 Flow Rate FiO2 04/26/25 12:32 20 04/26/25 10:00 67 138/86 (103) 97 Room Air 04/26/25 08:00 4.0 04/26/25 06:00 98.9 Physical exam: General: Well alert, well oriented, not confused, not agitated, not in acute distress, well cooperated during the physical. HEENT: Conjunctive are pink, sclerae clear, no icterus, pupil is equal in both sides, reactive to light, no ear discharge, no pharyngeal erythema or an edema. Neck: Supple, no JVD, no lymphadenopathy and thyromegaly. Chest: Equal air entry on both lungs, no additional sounds no rhonchi no wheezing at the moment, presence of scar in the left posterior side of the chest. Cardiovascular: S1-S2 regular sinus rhythm and, regular rate, no gallops, no rubs, no murmurs Abdomen: No visible peristalsis, Bowel sounds present on auscultation, soft, Mc Boothe sign positive, no guarding, no rigidity, presence of ventral abdominal hernia 4 x 4 cm in diameter easily reducible. Presence of scar in the midline of the abdomen from previous surgery. Extremities: No obvious deformities, 2+ pedal edema bilaterally, capillary refill intact, peripheral pulsations are intact on both sides Central Nervous System: No focal neurological deficits, no motor or sensory weakness in all 4 extremities, could move all 4 extremities, 2+ deep tendon reflexes, negative Babinski. Musculoskeletal: No joint swelling, deformities, inflammations, and no scoliosis and back tenderness Skin: Warm and dry. Result Diagram: 04/26/257 04/26/25426 Coagulation Studies Laboratory Tests Test 04/25/25 15:59 Prothrombin Time 11.9 SECONDS (9.0-12.0) INR International Normalized Ratio 1.2 INR Coagulation Comments Assessment Assessment 59 years old male patient came to the hospital transferred from [facility] due to abdominal pain. Plan Plan Abdominal pain: Acute cholecystitis: The patient came to the hospital with chief complaint of abdominal pain. Mc Boothe sign positive. Abdominal ultrasound performed at the other facility: Suboptimal evaluation due to body habitus. Cholelithiasis with sonographic Boothe's sign and gallbladder wall thickening with adjacent pericholecystic fluid. Findings concerning for acute cholecystitis. Elevated liver function tests: AST 235, ALT 305, total bilirubin 1.9. Follow-up he scan and CT scan of the abdomen. Surgeon: Dr. Apodaca consulted by ER physician. Zosyn IV t.i.d. Culturelle 26467 mmu b.i.d. Pain control with morphine. 04/26/2025: Dr. Apodaca evaluated the patient, requested cardiology clearance. Cardiology: Dr. Younger consulted who cleared the patient for surgery. Lexiscan ordered by surgeon Dr. Apodaca pending. Acute kidney injury likely secondary to dehydration: Creatinine 1.64, GFR 43, BUN/creatinine ratio 15.2. Follow-up urine lytes. NS at 20 mL/hour. Follow-up proBNP and echocardiogram. 04/26/2025: Fractional excretion of sodium: 0.6%, fractional excretion of urea 29.3% indicating prerenal AMALIA. NS at 50 mL/hour. History of methamphetamine use: Systolic congestive heart failure with ejection fraction of 35%: Echocardiogram in 01/16/2023: Tricuspid valve appears grossly normal with trace regurgitation. Mild mitral valve annular calcification without gross stenosis. Trace regurgitation. Probable trileaflet aortic valve that appears sclerotic without gross stenosis. No insufficiency appreciated. Measurements are estimates due to poor image quality. Recommend clinical correlation. Left atrium appears mildly dilated. Right ventricle appears to be mildly dilated. Estimated PA systoic pressure is 24 mmHg. Left ventricle is dilated with moderate concentric hypertrophy. Left ventricular systolic function appears to be moderately decreased. Overall LVEF appears to be around 35%. The Aortic root measures 3.7 cm. Ascending aorta is dilated and measures at 3.8 cm. U tox positive for fentanyl and methamphetamines. Ethyl alcohol<10 Empagliflozin 25 mg daily. Lisinopril 2.5 mg daily. Metoprolol 25 mg daily. Dyslipidemia: Follow-up lipid panel. Atorvastatin 80 mg daily. Code status: Full code DVT prophylaxis: SCDs Analgesia/sedation: Morphine Line/tube: PIV GI prophylaxis: None Nutrition: Clear liquid diet. NPO after midnight. PT: Ordered Prognosis: Guarded Disposition: Awaiting Lexiscan in a.m. Continue medical management. Rene Carey Internal Medicine Resident [facility] Date of Service: Apr 26, 2025 Billing Provider: CHARLES BUTLER MD Common Visit Codes: [id number] INP/OBS CARE(HIGH) RENE CASE, RES Apr 26, 2025 12:43 CHARLES BUTLER MD Apr 26, 2025 18:13
[2025-04-26 18:00] VITALS: BP 124/97
--- NOTE | 2025-04-26 18:17 | CARDIOLOGY REPORT ---
APPROVED REPORT EXAM: Comprehensive 2D, Doppler, and color-flow Echocardiogram. 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 84.9 cm/s AoV VTI 15.9 cm AO Peak GR. 2.9 mmHg AO Mean GR. 2 mmHg LVOT VTI 13.00 cm LVOT Peak Gerber. 74.6 cm/s THERESA(VTI)/BSA 2.41 cm2/m2 THERESA (VTI) 2.41 cm2 Mitral Valve MV E Velocity 84.2 cm/s MV Peak Gr. 4 mmHg MV DECEL TIME 116 ms MV A Velocity 32.0 cm/s MV PHT 60 ms E/A Ratio 2.6 MVA (PHT) 3.67 cm2 MV UPbt739.8 cm/s TDI Lateral E' P. V11.05 cm/s E/Lateral E' 7.6 Tricuspid Valve TR P. Velocity 248 cm/s RAP ESTIMATE 10 mmHg TR Peak Gr. 25 mmHg RVSP 35 mmHg LEFT VENTRICLE Normal LV size and wall thickness. Overall systolic function is severely decreased. LVEF is 30-35%. RIGHT VENTRICLE Right ventricle is mildly dilated. with reduced contractility. ATRIA Left atrium is mildly dilated. AORTIC VALVE Trileaflet AV appears mildly sclerotic without stenosis. No insufficiency. MITRAL VALVE Mild mitral annular calcification without stenosis. Mild regurgitation. TRICUSPID VALVE The tricuspid valve is normal in structure with mild regurgitation. PULMONIC VALVE The pulmonary valve is normal in structure without insufficiency. GREAT VESSELS The aortic root is normal in size. The ascending aorta is normal in size. IVC is dilated and collapse s greater than 50% with inspiration. PERICARDIUM Normal pericardium. No effusion. Other Information Study Quality: Fair due to body habitus Conclusion Normal LV size and wall thickness. Overall systolic function is severely decreased.LVEF is 30-35%. Right ventricle is mildly dilated. with reduced contractility. Left atrium is mildly dilated. Trileaflet AV appears mildly sclerotic without stenosis. No insufficiency. Mild mitral annular calcification without stenosis. Mild regurgitation. The tricuspid valve is normal in structure with mild regurgitation. Normal pericardium. No effusion.
--- NOTE | 2025-04-26 19:33 | PROGRESS NOTE ---
Progress Note ID Providers to CC ~ Progress Note Progress Note: complains of lower abdom pain/hida neg/awaiting GUERA Gomez MD Apr 26, 2025 19:33
[2025-04-26] MEDS: diatr meglu/diatrizoate 30ml oral sol.-(3 dose) bottle PO SCH (19:52)
[2025-04-26] MEDS: magnesium citrate 296ml oral solution PO ONE (20:55)
[2025-04-26 22:00] VITALS: BP 101/63; PULSE 76; RESP 22; TEMP 97.4; O2SAT 84
[2025-04-26 22:05] VITALS: O2SAT 95
[2025-04-27] VITALS (16 sets, daily range): BP systolic 90–120; BP diastolic 54–83; PULSE 63–89; RESP 18–20; TEMP 96.9–98; O2SAT 90–100
[2025-04-27 04:53] LABS: BASOPHILS # (AUTO) 0.1 X10'3 (0-0.2); BASOPHILS % (AUTO) 0.7 % (0-1); EOSINOPHILS # (AUTO) 0.1 X10'3 (0-0.9); EOSINOPHILS % (AUTO) 0.7 % (0-6); HEMATOCRIT 42.2 % (42.0-52.0); HEMOGLOBIN 14.2 g/dl (14.0-17.9); LYMPHOCYTES # (AUTO) 1.8 X10'3 (1.1-4.8); LYMPHOCYTES % (AUTO) 19.9 % (21-51); MEAN CORPUSCULAR HGB CONC 33.7 g/dL (33.0-36.5); MEAN CORPUSCULAR VOLUME 89.2 FL (78-98); MEAN PLATELET VOLUME 7.5 FL (7.4-10.4); MONOCYTES # (AUTO) 0.7 X10'3 (0-0.9); MONOCYTES % (AUTO) 7.1 % (2-12); NEUTROPHILS # (AUTO) 6.6 X10'3 (1.8-7.7); NEUTROPHILS % (AUTO) 71.6 % (42-75); PLATELET COUNT 213 X10'3 (140-440); RED BLOOD COUNT 4.73 X10'6 (4.70-6.10); WHITE BLOOD COUNT 9.3 X10'3 (4.5-11.0)
[2025-04-27 05:17] LABS: ALBUMIN 2.6 G/DL (3.4-5.0); ALBUMIN/GLOBULIN RATIO 0.7 (1.1-1.5); ALKALINE PHOSPHATASE 93 IU/L (46-116); ANION GAP 8 (8-16); ASPARTATE AMINO TRANSFERASE 707 U/L (10-37); BILIRUBIN,TOTAL 1.8 MG/DL (0.1-1.0); BLOOD UREA NITROGEN 33 MG/DL (7-18); BUN/CREATININE RATIO 22.1 (10.0-20.0); CALCIUM 7.9 MG/DL (8.5-10.1); CHLORIDE 102 MMOL/L (99-107); CREATININE 1.49 MG/DL (0.60-1.10); GLUCOSE 110 MG/DL (70-104); MAGNESIUM 2.1 MG/DL (1.5-2.4); POTASSIUM 4.1 MMOL/L (3.5-5.1); SODIUM 135 MMOL/L (135-145); TOTAL CARBON DIOXIDE 24.6 MMOL/L (24-32); TOTAL PROTEIN 6.3 G/DL (6.4-8.2); eCRCL 61 ML/MIN; eGFR 48 ML/MIN
[2025-04-27 05:23] LABS: ALANINE AMINOTRANSFERASE 1336 U/L (12-78)
[2025-04-27] MEDS: atorvastatin 20mg tablet PO SCH (09:13)
[2025-04-27] MEDS: EMPAGLIFLOZIN 25 MG TABLET PO SCH (09:13)
[2025-04-27] MEDS: metoprolol succinate 25mg (24-HOUR) SR. Tablet PO SCH (10:22)
[2025-04-27] MEDS: lisinopril 2.5mg tablet PO SCH (10:24)
[2025-04-27] MEDS: furosemide 20 MG/2 ML vial IV SCH (10:24)
[2025-04-27] MEDS: spironolactone 25 MG tablet PO SCH (10:24)
[2025-04-27] MEDS: regadenoson 0.4mg/5ml syringe IV ONE (11:43)
--- NOTE | 2025-04-27 12:55 | RADIOLOGY REPORT ---
Reason for study/Clinical History: clear for surgery Comparison Study: None Myocardial Perfusion Study with SPECT Technique: The patient received an intravenous injection of 8.5 mCi of technetium-99m Sestamibi whi cece at rest. After a short delay, SPECT tomographic images of the heart were obtained. The patient colten garg went to the stress lab where they received an intravenous Lexiscan utilizing standard protocol. 34.0 mCi of technetium-99m Sestamibi was injected intravenously immediately after the start of the infusion. Gated SPECT tomographic images of the heart were acquired and processed. Findings: Rotating planar images show no significant attenuation artifact. Non reversible defects are present in the inferior wall and anteroseptal wall. The left ventricular ejection fraction is 16 %. (normal greater than 50%) Impression: Non reversible defects suggestive of chronic infarcted tissue are present in the inferior wall, anter ior wall and septal wall. No reversible findings to suggest acute ischemia. Left ventricular ejection fraction is 16%.
--- NOTE | 2025-04-27 13:21 | RADIOLOGY REPORT ---
CHEST RADIOGRAPH Indication: PREOP Technique: Single frontal view of the chest was obtained Comparison: DI CHEST,SINGLE VIEW on DOS: 04/25/25, CHEST,SINGLE VIEW on DOS: 01/16/23 FINDINGS: Lines and Tubes: None Lungs: No focal consolidation. Mild interstitial prominence. Left upper to mid lung zone curvilinear density. Indistinctness of the left hemidiaphragm which is most likely from overlying cardiac silhoue tte. Pleura: No large pleural effusion. No pneumothorax. Cardiomediastinal contours: [id number] cardiomegaly. Bones: No acute osseous abnormality. Old fracture deformity of left posterior 5th rib. Multiple left- sided rib postsurgical changes. IMPRESSION: Cardiomegaly with mild pulmonary vascular congestion. Left upper to mid lung zone subsegmental atelectasis.
[2025-04-27] MEDS ORDERED: BUPIVAcaine 2.5mg/ml inj 50ml vial (contains preservative) ONE (13:42)
--- NOTE | 2025-04-27 14:30 | RADIOLOGY REPORT ---
Indication: pain Technique: CT axial images of the abdomen and pelvis are obtained without contrast. Coronal and sagit terri reformats were obtained. Radiation Dose Information: CTDI volume is 30 mGy. Dose-length product is 1852 mGy*cm Comparison: CT CT ABDOMEN PELVIS on DOS: 04/25/25, HIDA scan from 04/26/2025 FINDINGS: There is limited interpretation of the abdomen and pelvis without administration of intravenous contr ast. Small bilateral pleural effusions. Coronary artery calcification disease bilateral lower lobe consoli dation/atelectasis, [id number]-right. Adrenal glands, spleen, pancreas unremarkable in shape. Hepatic steatosis. Cholelithiasis. Pericho lecystic stranding. Kidneys demonstrate no hydronephrosis, nephrolithiasis. Stomach partially distended. Small bowel loops are normal in caliber. There is Gege duodenal strandin g. Colonic diverticular disease. Upper abdominal ventral wall hernia containing transverse colon measuri ng 4.1 x 3.2 cm without evidence for obstruction. Normal appendix. Abdominal aortic atherosclerotic disease. Dilatation of the infrarenal abdominal aorta to 3.1 cm. B ladder partially distended. No free pelvic fluid. No inguinal lymphadenopathy. Moderate to advanced left and moderate right sacroiliitis. Multiple old left rib fractures with inter nal fixation of some of the fractures. Moderate to advanced lumbar degenerative disc disease. Soft tissue edema / anasarca. Left lateral abdominal wall hernia containing fat measuring 8.8 x 7.5 cm. IMPRESSION: Cholelithiasis and pericholecystic stranding, concerning for cholecystitis. Recommend surgical consu ltation for further evaluation. Gege-Duodenal stranding which could represent duodenitis. Small bilateral pleural effusions. By lateral lower lobe consolidation/ atelectasis, [id number]-[id number]-[id number] an-right. Upper abdominal ventral wall hernia containing transverse colon measuring 4.1 x 3.2 cm without eviden ce for obstruction. Soft tissue edema / anasarca. Colonic diverticular disease. Atherosclerotic disease. Dilatation infrarenal abdominal aorta to 3.1 cm. Left lateral abdominal wall hernia containing fat measuring 8.8 x 7.5 cm. Other findings as described
--- NOTE | 2025-04-27 14:56 | PROGRESS NOTE- Residence ---
Progress Note - Resident Providers to CC Resident Creating Document: FLEX CASE, RES ~ Antibiotic Timeout Antibiotic Ordered?: Yes Subjective The patient has been evaluated at the bedside. Currently the patient denies pain, but he states that the patient comes and goes most frequently at nights. Objective Vital Signs Date Time Temp Pulse Resp B/P (MAP) Pulse Ox O2 Delivery O2 Flow Rate FiO2 04/27/25 14:40 20 04/27/25 14:40 96.9 89 97/66 (76) 97 Room Air 04/27/25 10:00 4.0 Physical exam: General: Well alert, well oriented, not confused, not agitated, not in acute distress, well cooperated during the physical. HEENT: Conjunctive are pink, sclerae clear, no icterus, pupil is equal in both sides, reactive to light, no ear discharge, no pharyngeal erythema or an edema. Neck: Supple, no JVD, no lymphadenopathy and thyromegaly. Chest: Equal air entry on both lungs, no additional sounds no rhonchi no wheezing at the moment, presence of scar in the left posterior side of the chest. Cardiovascular: S1-S2 regular sinus rhythm and, regular rate, no gallops, no rubs, no murmurs Abdomen: No visible peristalsis, Bowel sounds present on auscultation, soft, Mc Boothe sign positive, no guarding, no rigidity, presence of ventral abdominal hernia 4 x 4 cm in diameter easily reducible. Presence of scar in the midline of the abdomen from previous surgery. Extremities: No obvious deformities, 2+ pedal edema bilaterally, capillary refill intact, peripheral pulsations are intact on both sides Central Nervous System: No focal neurological deficits, no motor or sensory weakness in all 4 extremities, could move all 4 extremities, 2+ deep tendon reflexes, negative Babinski. Musculoskeletal: No joint swelling, deformities, inflammations, and no scoliosis and back tenderness Skin: Warm and dry. Result Diagram: 04/27/25 0419 04/27/25 0419 Coagulation Studies Laboratory Tests Test 04/25/25 15:59 Prothrombin Time 11.9 SECONDS (9.0-12.0) INR International Normalized Ratio 1.2 INR Coagulation Comments Assessment Assessment 59 years old male patient came to the hospital transferred from [facility] due to abdominal pain. Plan Plan Abdominal pain: Acute cholecystitis: The patient came to the hospital with chief complaint of abdominal pain. Boothe sign positive. Abdominal ultrasound performed at the other facility: Suboptimal evaluation due to body habitus. Cholelithiasis with sonographic Boothe's sign and gallbladder wall thickening with adjacent pericholecystic fluid. Findings concerning for acute cholecystitis. Elevated liver function tests: AST 235, ALT 305, total bilirubin 1.9. Follow-up he scan and CT scan of the abdomen. Surgeon: Dr. Apodaca consulted by ER physician. Zosyn IV t.i.d. Culturelle 50614 mmu b.i.d. Pain control with morphine. 04/26/2025: Dr. Apodaca evaluated the patient, requested cardiology clearance. Cardiology: Dr. Younger consulted who cleared the patient for surgery. Lexiscan ordered by surgeon Dr. Apodaca pending. 04/27/2025: Planned surgery for today 04/27/2025. Lexiscan: Non reversible defects suggestive of chronic infarcted tissue are present in the inferior wall, anterior wall and septal wall. No reversible findings to suggest acute ischemia. Left ventricular ejection fraction is 16%. Abdomen/pelvis CT scan with oral contrast: Cholelithiasis and pericholecystic stranding, concerning for cholecystitis. Recommend surgical consultation for further evaluation. Gege-Duodenal stranding which could represent duodenitis. Small bilateral pleural effusions. By lateral lower lobe consolidation/ atelectasis, [id number]-rchl-right. Upper abdominal ventral wall hernia containing transverse colon measuring 4.1 x 3.2 cm without evidence for obstruction. Soft tissue edema / anasarca. Colonic diverticular disease. Atherosclerotic disease. Dilatation infrarenal abdominal aorta to 3.1 cm. Left lateral abdominal wall hernia containing fat measuring 8.8 x 7.5 cm. Acute kidney injury likely secondary to dehydration: Creatinine 1.64, GFR 43, BUN/creatinine ratio 15.2. Follow-up urine lytes. Currently not in IV fluids due to volume overload. History of methamphetamine use: Systolic congestive heart failure with ejection fraction of 35%: Echocardiogram in 01/16/2023: Tricuspid valve appears grossly normal with trace regurgitation. Mild mitral valve annular calcification without gross stenosis. Trace regurgitation. Probable trileaflet aortic valve that appears sclerotic without gross stenosis. No insufficiency appreciated. Measurements are estimates due to poor image quality. Recommend clinical correlation. Left atrium appears mildly dilated. Right ventricle appears to be mildly dilated. Estimated PA systoic pressure is 24 mmHg. Left ventricle is dilated with moderate concentric hypertrophy. Left ventricular systolic function appears to be moderately decreased. Overall LVEF appears to be around 35%. The Aortic root measures 3.7 cm. Ascending aorta is dilated and measures at 3.8 cm. U tox positive for fentanyl and methamphetamines. Ethyl alcohol<10 Empagliflozin 25 mg daily. Lisinopril 2.5 mg daily. Metoprolol 25 mg daily. Lasix 20 mg IV b.i.d. Dyslipidemia: Triglycerides 82, cholesterol 112, LDL 61, HDL 41. Atorvastatin 80 mg daily. Code status: Full code DVT prophylaxis: SCDs Analgesia/sedation: Morphine and Dimock Line/tube: PIV GI prophylaxis: None Nutrition: NPO for surgery. PT: Ordered Prognosis: Guarded Disposition: Continue medical management patient. Possible surgery today. Flex Carey Internal Medicine Resident [facility] Addendum queationable cholecystitis poss transaminitis 2 to liver congestion? diat as tolerated Date of Service: Apr 27, 2025 Billing Provider: RAFFAELE BOONE MD Common Visit Codes: [id number] INP/OBS CARE(HIGH) FLEX CASE, RES Apr 27, 2025 14:56 RAFFAELE BOONE MD Apr 27, 2025 21:19
[2025-04-27] MEDS ORDERED: LISINOPRIL 2.5 MG PO (15:44)
[2025-04-27] MEDS ORDERED: FURO-150 PO (15:44)
[2025-04-27] MEDS ORDERED: CYCL-394 PO (15:44)
--- NOTE | 2025-04-27 17:44 | PROGRESS NOTE ---
Progress Note ID Providers to CC ~ Progress Note Progress Note: ct reviewed -fat containing ventral hernias noted-risk of surgical repair outweighs zydpepy-onxjcjsnr-wgpbssduaeqj management GUERA WASHBURN MD Apr 27, 2025 17:44
[2025-04-28 04:46] LABS: BASOPHILS % (AUTO) 0.4 % (0-1); EOSINOPHILS # (AUTO) 0.1 X10'3 (0-0.9); HEMATOCRIT 44.6 % (42.0-52.0); HEMOGLOBIN 15.2 g/dl (14.0-17.9); LYMPHOCYTES # (AUTO) 1.1 X10'3 (1.1-4.8); LYMPHOCYTES % (AUTO) 12.3 % (21-51); MEAN CORPUSCULAR HEMOGLOBIN 30.2 PG (27.0-31.0); MEAN PLATELET VOLUME 7.4 FL (7.4-10.4); MONOCYTES # (AUTO) 0.5 X10'3 (0-0.9); MONOCYTES % (AUTO) 5.7 % (2-12); NEUTROPHILS # (AUTO) 7.1 X10'3 (1.8-7.7); NEUTROPHILS % (AUTO) 80.6 % (42-75); PLATELET COUNT 191 X10'3 (140-440); RED BLOOD COUNT 5.02 X10'6 (4.70-6.10); WHITE BLOOD COUNT 8.8 X10'3 (4.5-11.0)
[2025-04-28 05:00] VITALS: BP 105/83; PULSE 69; RESP 17; TEMP 97; O2SAT 98
[2025-04-28 05:01] LABS: ALBUMIN 2.7 G/DL (3.4-5.0); ALBUMIN/GLOBULIN RATIO 0.7 (1.1-1.5); ALKALINE PHOSPHATASE 93 IU/L (46-116); ANION GAP 6 (8-16); ASPARTATE AMINO TRANSFERASE 343 U/L (10-37); BILIRUBIN,TOTAL 1.6 MG/DL (0.1-1.0); BLOOD UREA NITROGEN 22 MG/DL (7-18); BUN/CREATININE RATIO 14.4 (10.0-20.0); CALCIUM 7.7 MG/DL (8.5-10.1); CHLORIDE 101 MMOL/L (99-107); CREATININE 1.53 MG/DL (0.60-1.10); GLUCOSE 113 MG/DL (70-104); MAGNESIUM 1.8 MG/DL (1.5-2.4); POTASSIUM 4.2 MMOL/L (3.5-5.1); SODIUM 135 MMOL/L (135-145); TOTAL CARBON DIOXIDE 28.3 MMOL/L (24-32); TOTAL PROTEIN 6.6 G/DL (6.4-8.2); eCRCL 60 ML/MIN; eGFR 47 ML/MIN
[2025-04-28 05:07] LABS: ALANINE AMINOTRANSFERASE 1094 U/L (12-78)
[2025-04-28 07:36] VITALS: BP_SYST 110; BP_SYST 82; BP_DIAS 70; BP_DIAS 82
[2025-04-28 08:30] VITALS: BP_SYST 101; BP_SYST 139; BP_SYST 86; BP_DIAS 100; BP_DIAS 54; BP_DIAS 62; PULSE 114; PULSE 85; PULSE 88
[2025-04-28 10:00] VITALS: BP 96/58; PULSE 88; RESP 18; TEMP 98.6; O2SAT 96
--- NOTE | 2025-04-28 10:50 | PROGRESS NOTE- Residence ---
Progress Note - Resident Providers to CC Resident Creating Document: AME GONCALVES RES ~ Antibiotic Timeout Antibiotic Ordered?: Yes Subjective The patient has been evaluated at the bedside. Patient reports intermittent pain at 5/10 intensity with no change in frequency. He is able to tolerate normal diet. He has had 2-3 watery bowel movements since yesterday. Lives with a caregiver at home, does not use home oxygen. Advance diet as tolerated. Objective Vital Signs Date Time Temp Pulse Resp B/P (MAP) Pulse Ox O2 Delivery O2 Flow Rate FiO2 04/28/25 10:00 98.6 88 18 96/58 (71) 96 Nasal Cannula 4.0 Result Diagram: 04/28/2543104/28/25431 Physical exam: General: Well alert, well oriented, not confused, not agitated, not in acute distress, well cooperated during the physical. HEENT: Conjunctive are pink, sclerae clear, no icterus, pupil is equal in both sides, reactive to light, no ear discharge, no pharyngeal erythema or an edema. Neck: Supple, no JVD, no lymphadenopathy and thyromegaly. Chest: Equal air entry on both lungs, no additional sounds no rhonchi no wheezing at the moment, presence of scar in the left posterior side of the chest. Cardiovascular: S1-S2 regular sinus rhythm and, regular rate, no gallops, no rubs, no murmurs Abdomen: No visible peristalsis, Bowel sounds present on auscultation, soft, Boothe sign positive, no guarding, no rigidity, presence of ventral abdominal hernia 4 x 4 cm in diameter easily reducible. Left lateral abdominal wall hernia also seen - 8 x 8 cms, reducible. Presence of scar in the midline of the abdomen from previous surgery. Extremities: No obvious deformities, 2+ pedal edema bilaterally, capillary refill intact, peripheral pulsations are intact on both sides Central Nervous System: No focal neurological deficits, no motor or sensory weakness in all 4 extremities, could move all 4 extremities, 2+ deep tendon reflexes, negative Babinski. Musculoskeletal: No joint swelling, deformities, inflammations, and no scoliosis and back tenderness Coagulation Studies Laboratory Tests Test 04/25/25 15:59 Prothrombin Time 11.9 SECONDS (9.0-12.0) INR International Normalized Ratio 1.2 INR Coagulation Comments Advance Care Planning Advanced Care plannin - 30 Minutes Assessment Assessment 59 years old male patient came to the hospital transferred from [facility] due to abdominal pain. Plan Plan Abdominal pain: Possible Acute cholecystitis: Transaminitis The patient came to the hospital with chief complaint of abdominal pain. Boothe sign positive. Abdominal ultrasound performed at the other facility: Suboptimal evaluation due to body habitus. Cholelithiasis with sonographic Boothe's sign and gallbladder wall thickening with adjacent pericholecystic fluid. Findings concerning for acute cholecystitis. Elevated liver function tests: AST 235, ALT 305, total bilirubin 1.9. Follow-up he scan and CT scan of the abdomen. Surgeon: Dr. Apodaca consulted by ER physician. Zosyn IV t.i.d. Culturelle 23886 mmu b.i.d. Pain control with morphine. 04/26/2025: Dr. Apodaca evaluated the patient, requested cardiology clearance. Cardiology: Dr. Younger consulted who cleared the patient for surgery. Lexiscan ordered by surgeon Dr. Apodaca pending. 04/27/2025: Planned surgery for today 04/27/2025. Lexiscan: Non reversible defects suggestive of chronic infarcted tissue are present in the inferior wall, anterior wall and septal wall. No reversible findings to suggest acute ischemia. Left ventricular ejection fraction is 16%. Abdomen/pelvis CT scan with oral contrast: Cholelithiasis and pericholecystic stranding, concerning for cholecystitis. Recommend surgical consultation for further evaluation. Gege-Duodenal stranding which could represent duodenitis. Small bilateral pleural effusions. By lateral lower lobe consolidation/ atelectasis, [id number]-right. Upper abdominal ventral wall hernia containing transverse colon measuring 4.1 x 3.2 cm without evidence for obstruction. Soft tissue edema / anasarca. Colonic diverticular disease. Atherosclerotic disease. Dilatation infrarenal abdominal aorta to 3.1 cm. Left lateral abdominal wall hernia containing fat measuring 8.8 x 7.5 cm. 04/28/2025: HIDA scan showed prompt visualization of the gallbladder suggesting patency of cystic duct and no acute cholecystitis. Surgical consultation from Dr. Bernal advised conservative management due to risk of surgical repair outweighing benefit. AST - 343, ALT - 1094, Follow up Hepatitis panel Zosyn IV t.i.d. Culturelle 22024 mmu b.i.d. Pain control with morphine. Acute kidney injury likely secondary to dehydration: Creatinine 1.64, GFR 43, BUN/creatinine ratio 15.2. Follow-up urine lytes. Currently not in IV fluids due to volume overload. 04/28/25 Creatinine 1.53, GFR 47, BUN/creatinine ratio 14.4. FeNa - 0.53 % Currently not in IV fluids due to volume overload. History of methamphetamine use: Systolic congestive heart failure with ejection fraction of 35% Acute hypoxic respiratory failure likely secondary to above Echocardiogram in 01/16/2023: Tricuspid valve appears grossly normal with trace regurgitation. Mild mitral valve annular calcification without gross stenosis. Trace regurgitation. Probable trileaflet aortic valve that appears sclerotic without gross stenosis. No insufficiency appreciated. Measurements are estimates due to poor image quality. Recommend clinical correlation. Left atrium appears mildly dilated. Right ventricle appears to be mildly dilated. Estimated PA systoic pressure is 24 mmHg. Left ventricle is dilated with moderate concentric hypertrophy. Left ventricular systolic function appears to be moderately decreased. Overall LVEF appears to be around 35%. The Aortic root measures 3.7 cm. Ascending aorta is dilated and measures at 3.8 cm. U tox positive for fentanyl and methamphetamines. Ethyl alcohol<10 Empagliflozin 25 mg daily. Lisinopril 2.5 mg daily. Coreg 3.125 p.o. b.i.d.. Lasix 20 mg IV b.i.d. Hold blood pressure medications for SBP less than 100 and heart rate less than 60 Dyslipidemia: Triglycerides 82, cholesterol 112, LDL 61, HDL 41. Atorvastatin 80 mg daily. Code status: Full code DVT prophylaxis: SCDs Analgesia/sedation: Morphine and [place] Line/tube: PIV GI prophylaxis: None Nutrition: Regular Diet. PT: Ordered Prognosis: Guarded Disposition: Continue medical management. Currently on 4 L oxygen nasal canula, does not use oxygen at home. Taper oxygen and advance diet, if stable can be DC in am. PT eval: Home independent DC plan lives at home has caregiver. Date of Service: Apr 28, 2025 Billing Provider: RAFFAELE BOONE MD Common Visit Codes: [id number] INP/OBS CARE(HIGH) AME GONCALVES, RES Apr 28, 2025 10:50 RAFFAELE BOONE MD Apr 29, 2025 09:38
[2025-04-28] MEDS: morphine 2 MG/ML inj. syringe IV PRN (17:36)
[2025-04-28 18:00] VITALS: BP 98/60; PULSE 82; RESP 22; TEMP 98.1; O2SAT 95
[2025-04-28] MEDS: carVEDilol 3.125mg tablet PO SCH (20:00)
[2025-04-28 22:00] VITALS: BP 104/60; PULSE 77; RESP 21; TEMP 97.3; O2SAT 93
[2025-04-29 04:19] VITALS: BP 125/93; PULSE 82
[2025-04-29 05:58] LABS: BASOPHILS % (AUTO) 0.2 % (0-1); EOSINOPHILS # (AUTO) 0.2 X10'3 (0-0.9); EOSINOPHILS % (AUTO) 2.4 % (0-6); HEMATOCRIT 39.9 % (42.0-52.0); HEMOGLOBIN 13.6 g/dl (14.0-17.9); LYMPHOCYTES % (AUTO) 13.6 % (21-51); MEAN CORPUSCULAR HEMOGLOBIN 30.4 PG (27.0-31.0); MEAN CORPUSCULAR HGB CONC 34.1 g/dL (33.0-36.5); MEAN CORPUSCULAR VOLUME 89.1 FL (78-98); MEAN PLATELET VOLUME 7.6 FL (7.4-10.4); MONOCYTES # (AUTO) 0.8 X10'3 (0-0.9); NEUTROPHILS # (AUTO) 5.3 X10'3 (1.8-7.7); NEUTROPHILS % (AUTO) 72.8 % (42-75); PLATELET COUNT 197 X10'3 (140-440); RED BLOOD COUNT 4.48 X10'6 (4.70-6.10); RED CELL DISTRIBUTION WIDTH 15.4 % (11.5-14.5); WHITE BLOOD COUNT 7.3 X10'3 (4.5-11.0)
[2025-04-29 06:00] VITALS: BP 135/92; PULSE 96; RESP 21; TEMP 97.3; O2SAT 91
[2025-04-29 06:18] LABS: ALANINE AMINOTRANSFERASE 929 U/L (12-78); ALBUMIN 2.6 G/DL (3.4-5.0); ALBUMIN/GLOBULIN RATIO 0.7 (1.1-1.5); ALKALINE PHOSPHATASE 102 IU/L (46-116); ANION GAP 6 (8-16); ASPARTATE AMINO TRANSFERASE 323 U/L (10-37); BILIRUBIN,TOTAL 0.9 MG/DL (0.1-1.0); BLOOD UREA NITROGEN 21 MG/DL (7-18); BUN/CREATININE RATIO 16.8 (10.0-20.0); CALCIUM 8.2 MG/DL (8.5-10.1); CHLORIDE 100 MMOL/L (99-107); CREATININE 1.25 MG/DL (0.60-1.10); GLUCOSE 120 MG/DL (70-104); MAGNESIUM 1.9 MG/DL (1.5-2.4); POTASSIUM 4.2 MMOL/L (3.5-5.1); SODIUM 135 MMOL/L (135-145); TOTAL CARBON DIOXIDE 29.2 MMOL/L (24-32); TOTAL PROTEIN 6.5 G/DL (6.4-8.2); eCRCL 73 ML/MIN; eGFR 59 ML/MIN
[2025-04-29 08:00] VITALS: RESP 21; O2SAT 91
[2025-04-29] MEDS: cyclobenzaprine 10mg tablet PO PRN (09:35)
[2025-04-29 09:38] VITALS: BP 111/63; PULSE 95
[2025-04-29 10:00] VITALS: BP 120/83; PULSE 102; RESP 19; TEMP 97.1; O2SAT 92
[2025-04-29] MEDS ORDERED: HYDR-3965 PO (11:57)
[2025-04-29] MEDS ORDERED: CARV3.1232 PO (14:18)
[2025-04-29 14:40] VITALS: RESP 16
--- NOTE | 2025-04-29 15:57 | DISCHARGE SUMMARY-Residence ---
Discharge Summary Providers to CC Resident Creating Document: RENE CASE, RES ~ Discharge Summary Admission Diagnosis: Abdominal pain Hospital Course DATE OF ADMISSION: 04/25/2025 DATE OF DISCHARGE: 04/29/2025 Discharge Diagnosis\Comment: Abdominal pain Possible Acute cholecystitis Transaminitis Acute kidney injury likely secondary to dehydration History of methamphetamine use Systolic congestive heart failure with ejection fraction of 35% Acute hypoxic respiratory failure likely secondary to above Dyslipidemia Operations\Procedures: None Consultants: Surgeon, Dr. Hagen Complications: Product Line Manager, Dr. Younger Condition on DC: Stable New Medications: Carvedilol (Carvedilol) 3.125 Mg Tablet 1 TAB PO Q12H for 30 Days, #60 TAB 0 Refills Hydrocodone Bit/Acetaminophen 5/325 MG (Shorter 5/325 MG) 5 Mg/325 Mg Tablet 1 TAB PO Q6H PRN for pain, #14 TAB Continued Medications: Aspirin (Aspirin EC) 81 Mg Tablet.dr 1 TAB PO DAILY for 30 Days, #30 TAB Atorvastatin Calcium (Atorvastatin Calcium) 80 Mg Tablet 1 TAB PO DAILY for 30 Days, #30 TAB Cholecalciferol (Vitamin D3) (Vitamin D3) 25 Mcg Capsule 2 CAP PO DAILY for 30 Days, #30 CAP 0 Refills Cyclobenzaprine HCl (Cyclobenzaprine HCl) 10 Mg Tablet 10 MG PO Q8H PRN for muscle spasms for 5 Days, #15 TAB Empagliflozin (Jardiance) 25 Mg Tablet 1 TAB PO DAILY Furosemide* (Lasix*) 20 Mg Tablet 20 MG PO DAILY for 30 Days, #30 TAB [Lisinopril 2.5 Mg] () 1 TAB PO DAILY for 30 Days, #30 Olmesartan Medoxomil (Benicar) 20 Mg Tablet 1 TAB PO DAILY for 30 Days, #30 TAB 0 Refills Spironolactone (Spironolactone) 25 Mg Tablet 1 TAB PO DAILY for 30 Days, #30 TAB Discontinued Medications: Metoprolol Succinate (Metoprolol Succinate) 50 Mg Tab.sr.24h 1 TAB PO DAILY for 30 Days, #30 TAB Discharge Summary: HPI: PCP: Samantha vance Product Line Manager: Dr. Evans 59-year-old male patient with past medical history of systolic congestive heart failure, dyslipidemia, hypertension came to the hospital transferred from [facility] with chief complaint of abdominal pain. The patient states that he has been experiencing abdominal pain on and off for the last one month, usually before bed, not sure if associated with food. This morning he states that he experienced abdominal pain as per patient in the lower abdomen 9/10 in intensity, without radiation, described as a colicky type, he denies any changes in urine or bowel movements. The patient states that while he experienced this pain he noticed some dizziness, subjective fever and sweating. During the evaluation he had colicky type pain and the patient was pointing to the level of the epigastrium. He currently denies any chest pain, shortness of breath, palpitations, urinary or intestinal symptoms. Hospital course: 59 years old male patient came to the hospital transferred from [facility] due to abdominal pain. The patient was admitted with possible acute cholecystitis. Ultrasound of the abdomen showed positive Boothe's sign and gallbladder wall thickening with adjacent pericholecystic fluid. Findings concerning of acute cholecystitis. Surgeon Dr. Hagen was consulted for possible surgery. Clearance from Cardiology Dr. Younger was obtained. CT scan of the abdomen and pelvis with contrast was obtained due to the possibility of SBO and strangulation of ventral abdominal hernia without significant findings obtained. Echocardiogram showing left ventricular ejection fraction of 35%. Due to elevated transaminitis viral hepatitis is in the differential, viral hepatitis panel obtained. Surgeon, Dr. Hagen evaluated the patient and did not recommend surgical procedure at this time. Recommended conservative management. The patient was continued on antibiotics. On 04/29/2025, the patient reports improvement of pain, due to mild shortness of breath evidenced in the acute setting of pain oxygen qualification was obtained. The patient does not require oxygen. The patient remained hemodynamically stable. The patient will be discharged home. Discharge course: The patient remained hemodynamically stable. The patient will be discharged with the following instructions: Call 911 or come back to the emergency department if severe pain, fever sensation, chest pain, palpitations, shortness of breaths is evidenced. Take Shorter one tablet every 6 hours as needed for pain. Take carvedilol one tablet of 3.125 mg every 12 hours. We are stopping metoprolol. Continue aspirin one tablet of 81 mg daily. Continue atorvastatin one tablet of 80 mg daily. Continue cholecalciferol two capsules daily. Continue cyclobenzaprine one tablet of 10 mg every 8 hours as needed for muscle spasms. Continue Jardiance one tablet of 25 mg daily. Furosemide one tablet of 20 mg daily. Lisinopril one tablet of 2.5 mg daily. Continue spironolactone one tablet of 25 mg daily. Strong recommendation of cessation of methamphetamines, fentanyl and alcohol. Follow-up with your manganese wheeler Dr. Evans within two weeks. Physical exam: General: Well alert, well oriented, not confused, not agitated, not in acute distress, well cooperated during the physical. HEENT: Conjunctive are pink, sclerae clear, no icterus, pupil is equal in both sides, reactive to light, no ear discharge, no pharyngeal erythema or an edema. Neck: Supple, no JVD, no lymphadenopathy and thyromegaly. Chest: Equal air entry on both lungs, no additional sounds no rhonchi no wheezing at the moment, presence of scar in the left posterior side of the chest. Cardiovascular: S1-S2 regular sinus rhythm and, regular rate, no gallops, no rubs, no murmurs Abdomen: No visible peristalsis, Bowel sounds present on auscultation, soft, Mc Boothe sign positive, no guarding, no rigidity, presence of ventral abdominal hernia 4 x 4 cm in diameter easily reducible. Presence of scar in the midline of the abdomen from previous surgery. Extremities: No obvious deformities, 1+ pedal edema bilaterally, capillary refill intact, peripheral pulsations are intact on both sides Central Nervous System: No focal neurological deficits, no motor or sensory weakness in all 4 extremities, could move all 4 extremities, 2+ deep tendon reflexes, negative Babinski. Musculoskeletal: No joint swelling, deformities, inflammations, and no scoliosis and back tenderness Skin: Warm and dry. Vital Signs Date Time Temp Pulse Resp B/P (MAP) Pulse Ox O2 Delivery O2 Flow Rate FiO2 04/29/25 14:40 16 04/29/25 10:00 97.1 102 120/83 (95) 92 Room Air 04/29/25 08:00 2.0 Laboratory Tests Test 04/27/25 16:10 04/28/25 04:32 04/29/25 04:34 Hepatitis C Virus (Real-Time PCR) White Blood Count 8.8 X10'3 7.3 X10'3 Red Blood Count 5.02 X10'6 4.48 X10'6 Hemoglobin 15.2 g/dl 13.6 g/dl Hematocrit 44.6 % 39.9 % Mean Corpuscular Volume 89.0 FL 89.1 FL Mean Corpuscular Hemoglobin 30.2 PG 30.4 PG Mean Corpuscular Hemoglobin Concent 34.0 g/dL 34.1 g/dL Red Cell Distribution Width 15.0 % 15.4 % Platelet Count 191 X10'3 197 X10'3 Mean Platelet Volume 7.4 FL 7.6 FL Neutrophils (%) (Auto) 80.6 % 72.8 % Lymphocytes (%) (Auto) 12.3 % 13.6 % Monocytes (%) (Auto) 5.7 % 11.0 % Eosinophils (%) (Auto) 1.0 % 2.4 % Basophils (%) (Auto) 0.4 % 0.2 % Neutrophils # (Auto) 7.1 X10'3 5.3 X10'3 Lymphocytes # (Auto) 1.1 X10'3 1.0 X10'3 Monocytes # (Auto) 0.5 X10'3 0.8 X10'3 Eosinophils # (Auto) 0.1 X10'3 0.2 X10'3 Basophils # (Auto) 0.0 X10'3 0.0 X10'3 CBC Comment Sodium Level 135 MMOL/L 135 MMOL/L Potassium Level 4.2 MMOL/L 4.2 MMOL/L Chloride Level 101 MMOL/L 100 MMOL/L Carbon Dioxide Level 28.3 MMOL/L 29.2 MMOL/L Anion Gap 6 6 Blood Urea Nitrogen 22 MG/DL 21 MG/DL Creatinine 1.53 MG/DL 1.25 MG/DL Estimated GFR/1.73 m2 47 ML/MIN 59 ML/MIN BUN/Creatinine Ratio 14.4 16.8 Glucose Level 113 MG/DL 120 MG/DL Calcium Level 7.7 MG/DL 8.2 MG/DL Magnesium Level 1.8 MG/DL 1.9 MG/DL Total Bilirubin 1.6 MG/DL 0.9 MG/DL Aspartate Amino Transf (AST/SGOT) 343 U/L 323 U/L Alanine Aminotransferase (ALT/SGPT) 1094 U/L 929 U/L Alkaline Phosphatase 93 IU/L 102 IU/L Total Protein 6.6 G/DL 6.5 G/DL Albumin 2.7 G/DL 2.6 G/DL Globulin 3.9 G/DL 3.9 G/DL Albumin/Globulin Ratio 0.7 0.7 Chemistry Comments *Problems/Diagnosis: (1) Acute cholecystitis Status: Acute (2) Congestive heart failure Status: Chronic (3) AMALIA (acute kidney injury) Status: Acute Total Time Spent on D/C: > 30 Minutes Date of Service: Apr 29, 2025 Billing Provider: RAFFAELE BOONE MD, FRANCO LUIS, RES Apr 29, 2025 15:56
== END 2025-04-29 14:55 | disposition home or self-care (01) ==
LOC: ER 15:08 → ED HOLD 16:58 → ORTHO 4S 19:16
PROVIDERS: ADMIT Internal Medicine; ATTEND Internal Medicine
PROC: CF1C1ZZ Planar Nuclear Medicine Imaging of Hepatobiliary System, All using Technetium 99m (Tc-99m) (ICD-10-PCS; principal; 2025-04-26)
PROC: 4A02XM4 Measurement of Cardiac Total Activity, External Approach (ICD-10-PCS; 2025-04-27)
PROC: 3E033HZ Introduction of Radioactive Substance into Peripheral Vein, Percutaneous Approach (ICD-10-PCS; 2025-04-27)
DX: K80.00 Calculus of gallbladder with acute cholecystitis without obstruction (principal); J96.01 Acute respiratory failure with hypoxia; N17.9 Acute kidney failure, unspecified; I50.22 Chronic systolic (congestive) heart failure; E86.0 Dehydration; I11.0 Hypertensive heart disease with heart failure; G89.29 Other chronic pain; M54.9 Dorsalgia, unspecified; E78.5 Hyperlipidemia, unspecified; R74.01 Elevation of levels of liver transaminase levels; I08.1 Rheumatic disorders of both mitral and tricuspid valves; K43.6 Other and unspecified ventral hernia with obstruction, without gangrene; J44.9 Chronic obstructive pulmonary disease, unspecified; I25.10 Atherosclerotic heart disease of native coronary artery without angina pectoris; I25.2 Old myocardial infarction; Z79.899 Other long term (current) drug therapy
CPT/HCPCS: 36415; 71045; 74176; 78226; 78452; 80053; 80061; 80305; 80320; 81001; 82248; 82570; 82948; 83036; 83690; 83735; 83880; 83930; 83935; 84156; 84300; 84439; 84443; 84540; 85025; 85610; 86704; 86705; 86709; 86803; 87081; 87207; 87340; 87522; 93005; 93017; 93306; 96365; 96366; 96375; 97110; 97116; 97162; 99285; A4615; A6258; A9500; A9537; G0378; J1171; J1938; J2270; J2405; J2543; J2785; J3490; J7030; Q9963

== ENCOUNTER 2025-05-15 10:41 | Emergency (ER) | payer MEDICAID ==
[~2025-05-15] VITALS: Ht 188 cm; Wt 136.4 kg
[~2025-05-15 10:41] MED LIST changes: +CARV3.1232 PO; -CYCL-1 PO; +CYCL-394 PO; +HYDR-3965 PO; -LISI2.5T14 PO; +LISINOPRIL 2.5 MG PO; -METO-384 PO
[2025-05-15 11:34] LABS: MEAN PLATELET VOLUME 7.3 FL (7.4-10.4); RED CELL DISTRIBUTION WIDTH 16.0 % (11.5-14.5)
[2025-05-15 11:58] LABS: CREATININE 1.14 MG/DL (0.60-1.10); TOTAL CARBON DIOXIDE 27.2 MMOL/L (24-32); eCRCL 80 ML/MIN; eGFR 66 ML/MIN
--- NOTE | 2025-05-15 12:03 | Physician Documentation ---
History of Present Illness Chief Complaint: Abdominal Pain w/vomiting Stated Complaint: GALL BLADDER PAIN Time Seen by MD: 12:03 Primary Medical Doctor: PCP: Samantha vance. Promotions Team Leader: Dr. ariana HOOD This 59-year-old male returns to the emergency department due to issues with ongoing abdominal pain. Was seen here on 04/25/2025 and admitted for five days due to suspicion for acute cholecystitis. At that time, he did also have transaminitis, AMALIA, and a surgical consultation was obtained with Dr. Cade. Surgery not recommended at that time. Reports that he saw his racking machine operator, Dr. Evans, today, and did get surgical clearance for cholecystectomy. Notes that his pain persists, despite taking the prescribed pain medication, and is made much worse when he eats. Echocardiogram with recent hospitalization showed ejection fraction 35%. Medication Reconciliation Allergies: Coded Allergies: No Known Allergies (Unverified , 05/15/25) Scheduled Aspirin (Aspirin EC), 1 TAB PO DAILY, (Reported) Atorvastatin Calcium (Atorvastatin Calcium), 1 TAB PO DAILY, (Reported) Carvedilol (Carvedilol), 1 TAB PO Q12H Cholecalciferol (Vitamin D3) (Vitamin D3), 2 CAP PO DAILY, (Reported) Empagliflozin (Jardiance), 1 TAB PO DAILY, (Reported) Furosemide* (Lasix*), 20 MG PO DAILY, (Reported) Olmesartan Medoxomil (Benicar), 1 TAB PO DAILY, (Reported) Spironolactone (Spironolactone), 1 TAB PO DAILY, (Reported) [Lisinopril 2.5 Mg], 1 TAB PO DAILY, (Reported) Scheduled PRN Cyclobenzaprine HCl (Cyclobenzaprine HCl), 10 MG PO Q8H PRN for muscle spasms, (Reported) Hydrocodone Bit/Acetaminophen 5/325 MG ([place] 5/325 MG), 1 TAB PO Q6H PRN for pain Hydrocodone Bit/Acetaminophen 5/325 MG ([place] 5/325 MG), 1 TAB PO TID PRN PRN for pain Ondansetron 8mg ODT (Ondansetron Odt), 1 TAB PO TID PRN for nausea/vomiting Past Medical History Past Medical History: Congestive Heart Failure, Hypertension, Myocardial Infarction, *MUSCULOSKELETAL*, Chronic Back Pain, Extremity Fracture Past Surgical History: abdominal surgery, orthopedic surgeries Patient History: Patient reports no known family medical history. Alcohol Use: Sober Drug Use: methamphetamine Lives with: Other Lives In: Home Occupation: unemployed Review of Systems ROS As stated above in the HPI, otherwise all systems are reviewed and negative. Physical Exam Vital Signs: Temperature: 98.9, Source: Temporal, Heart Rate: 75, Respiratory Rate: 20, BP: 114/80, Pulse Oximetry: 98, Weight: 136.360 Oxygen Flow Rate: 0 Physical Exam General: Alert, no apparent distress. Neck: Full range of motion. Respiratory: Lungs clear, no respiratory distress. Chest: No accessory muscle use. Cardiovascular: Regular rate and rhythm, no murmurs. Gastrointestinal: Soft, TTP lower abd, nondistended. Bowels sounds present. Extremities: Normal range of motion, no deformity. Neurologic: Oriented x4. Psychiatric: Normal mood and affect. Skin: Normal color, warm and dry. No edema, no ecchymosis. Progress Progress Note 1220: Call placed to computer systems consultant general surgeon, Dr. Shell. 1338: Conversation with Dr. Shell via phone who reviewed all imaging and labs from previous admit and today. Notes that he sees no reason for patient to be admitted and that he may f/u with Dr. Cade as an outpatient. Impression from CT scan abd/pelvis done 04/27/25: IMPRESSION: Cholelithiasis and pericholecystic stranding, concerning for cholecystitis. Recommend surgical consultation for further evaluation. Gege-Duodenal stranding which could represent duodenitis. Small bilateral pleural effusions. By lateral lower lobe consolidation/ atelectasis, [id number]-right. Upper abdominal ventral wall hernia containing transverse colon measuring 4.1 x 3.2 cm without evidence for obstruction. Soft tissue edema / anasarca. Colonic diverticular disease. Atherosclerotic disease. Dilatation infrarenal abdominal aorta to 3.1 cm. Left lateral abdominal wall hernia containing fat measuring 8.8 x 7.5 cm. Other findings as described Electronically Signed by:DEA MARTINEZ MD Date & Time: 04/27/25 1428 Dictated by: DEA MARTINEZ MD Dictation date and time: 04/27/25 1428 Primary Care Provider: NO PRIMARY CARE PROVIDER cc: GUERA BERNAL MD ~ Results/Orders Results/Orders Vital Signs 05/15/25 10:49 Temp 98.9 Pulse 75 Resp 20 B/P (MAP) 114/80 Pulse Ox 98 O2 Flow Rate 0 Laboratory Tests Test 05/15/25 11:06 White Blood Count 7.2 Red Blood Count 4.88 Hemoglobin 14.4 Hematocrit 44.2 Mean Corpuscular Volume 90.7 Mean Corpuscular Hemoglobin 29.6 Mean Corpuscular Hemoglobin Concent 32.6 L Red Cell Distribution Width 16.0 H Platelet Count 247 Mean Platelet Volume 7.3 L Neutrophils (%) (Auto) 71.2 Lymphocytes (%) (Auto) 18.2 L Monocytes (%) (Auto) 8.6 Eosinophils (%) (Auto) 1.1 Basophils (%) (Auto) 0.9 Neutrophils # (Auto) 5.1 Lymphocytes # (Auto) 1.3 Monocytes # (Auto) 0.6 Eosinophils # (Auto) 0.1 Basophils # (Auto) 0.1 CBC Comment Sodium Level 138 Potassium Level 4.4 Chloride Level 102 Carbon Dioxide Level 27.2 Anion Gap 9 Blood Urea Nitrogen 13 Creatinine 1.14 H Estimated GFR/1.73 m2 66 BUN/Creatinine Ratio 11.4 Glucose Level 111 H Calcium Level 8.8 Total Bilirubin 0.8 Aspartate Amino Transf (AST/SGOT) 12 Alanine Aminotransferase (ALT/SGPT) 27 Alkaline Phosphatase 74 Total Protein 7.3 Albumin 3.0 L Globulin 4.3 Albumin/Globulin Ratio 0.7 L Lipase 25 Chemistry Comments Medical Decision Making Additional Comments 59-year-old male with a recent hospital admission for what was thought to be cholecystitis. This was ruled out with a normal MRCP. Repeat labs today all in range with no leukocytosis or transaminitis. Phone consultation with on-call surgeon Dr. Shell, who advises that the patient may be discharged and does not need immediate surgery. The patient is advised to maintain a low-fat bland diet, primarily clear liquids. He will be given more pain medication and nausea medication. He will need to follow up with the surgeon as an outpatient. He should return if worse. Departure Time of Disposition: 13:38 Disposition: 01 HOME / SELF CARE / HOMELESS Impression: Primary Impression: Cholelithiasis Additional Impression: Abdominal pain Discharge Instructions: Abdominal Pain, Adult, Gallbladder Eating Plan Additional Instructions: I spoke with the on-call surgeon, Dr. Shell. He reviewed your recent admission- labs and imaging. He advises that you do not need immediate surgery and may return home. I will send more pain meds and nausea meds. Please see the gallblad tawana eating plan. You will be best off on clear liquids or very simple foods that are low fat until you can followup with Dr. Bernal and plan your surgery. Return if worse such as with fever over 101 and pain unrelieved by your pain pills. Referrals: NO PRIMARY CARE PROVIDER (PCP) GUERA BERNAL MD Prescriptions Ondansetron 8mg ODT (Ondansetron Odt) 8 Mg Tab.rapdis 1 TAB PO TID PRN for nausea/vomiting, #10 TAB Prov: KOMAL WEEKS NP 05/15/25 Hydrocodone Bit/Acetaminophen 5/325 MG ([place] 5/325 MG) 5 Mg/325 Mg Tablet 1 TAB PO TID PRN PRN for pain for 5 Days, #15 TAB Prov: KOMAL WEEKS NP 05/15/25 Education Educated: Patient Educated regarding: diagnosis, treatment, prognosis, need for follow up Signature Scribe Signature: x Attestation: The note accurately reflects work and decisions made by me.Komal Thomas NP 05/15/25 12:10 KOMAL WEEKS NP May 15, 2025 12:03
[2025-05-15] MEDS ORDERED: normal saline 1000ML IV soln IVB ONE (12:05)
[2025-05-15] MEDS: normal saline 500ml IV soln 500 ML IV ONE (12:30)
[2025-05-15] MEDS: ondansetron/PF 4mg/2ml inj IV ONE (12:41)
[2025-05-15] MEDS: morphine 4 MG/ML inj SYRINge IV ONE (12:43)
[2025-05-15] MEDS ORDERED: ONDA-245 PO (13:40)
[2025-05-15] MEDS ORDERED: HYDR-3965 PO (13:40)
[2025-05-15 13:48] VITALS: TEMP 98.9
[2025-05-15 14:38] VITALS: BP 114/87; PULSE 92; RESP 18; O2SAT 98
== END 2025-05-15 14:39 | disposition home or self-care (01) ==
LOC: ER 10:42
DX: I11.0 Hypertensive heart disease with heart failure (principal); I50.9 Heart failure, unspecified; I25.2 Old myocardial infarction; Z79.899 Other long term (current) drug therapy; Z79.82 Long term (current) use of aspirin; Z56.0 Unemployment, unspecified; F15.90 Other stimulant use, unspecified, uncomplicated; K80.20 Calculus of gallbladder without cholecystitis without obstruction
CPT/HCPCS: 36415; 80053; 83690; 85025; 96361; 96374; 96375; 99284; J2270; J2405; J7030; J7040

== ENCOUNTER 2025-06-07 17:24 | Emergency (ER) | payer MEDICAID ==
[~2025-06-07] VITALS: Ht 188 cm; Wt 148.3 kg
[~2025-06-07 17:24] MED LIST changes: -CARV3.1232 PO; +COR3.125T PO; -HYDR-3965 PO; +ONDA-245 PO
--- NOTE | 2025-06-07 17:31 | ELECTROCARDIOGRAPH REPORT ---
[facility] Test Date: 2025-06-07 Test Time: 17:29:41 Pat Name: HEMANT MARTIN Department: EMERGENCY ROOM Room: Gender: M Telephone Technician: : 1965 Requested By: MOON BARROS Order Number: [id number] Reading MD: Dr. Phu Torres Measurements Intervals [place] Rate: 82 P: 28 MO: 155 QRS: -90 QRSD: 154 T: 130 QT: 410 QTc: 479 Interpretive Statements Atrial-sensed ventricular-paced rhythm No further analysis attempted due to paced rhythm Electronically Signed On 06-08-2025 19:29:[address] Phu Torres Please click the below link to view image of tracing.
[2025-06-07 17:54] LABS: MEAN PLATELET VOLUME 6.7 FL (7.4-10.4); RED CELL DISTRIBUTION WIDTH 15.3 % (11.5-14.5)
[2025-06-07] MEDS ORDERED: HYDR-3972 PO (17:58)
[2025-06-07] MEDS ORDERED: TRAZ-256 PO (17:58)
[2025-06-07] MEDS ORDERED: SACU1TAB PO (17:58)
[2025-06-07] MEDS ORDERED: GABA-1405 PO (17:58)
[2025-06-07] MEDS ORDERED: SEMA1PEN3 SQ (17:58)
[2025-06-07] MEDS ORDERED: ALBU10.7 (17:58)
[2025-06-07] MEDS ORDERED: CEPH500C81 (17:58)
--- NOTE | 2025-06-07 18:06 | Physician Documentation ---
History of Present Illness ~ Chief Complaint: Chest Pain Stated Complaint: CHEST PAIN Time Seen by MD: 17:41 Primary Medical Doctor: PCP: Samantha vance. Chief Librarian Branch Or Department: Dr. lane Source: patient, EMS Mode of Arrival: EMS Exam Limitations: no limitations HPI Patient with a recent history of hospitalization he states her an infection in his lungs and then about a week ago he states that he had a defibrillator placed for his heart failure. History of drug use but states he has been clean for about a year. States he went swimming for about 5 hours the other day and is wondering if maybe he has been of done that. Last night he started to have moderate chest pain that radiates into his back. Today he was driving and felt like he was maybe going to pass out while he was driving so he pulled over and called for help. EMS reports that initially he had a low blood pressure and they gave Zofran and aspirin and then after that he had a high blood pressure. Medication Reconciliation Allergies: Coded Allergies: No Known Allergies (Unverified , 06/07/25) Scheduled Aspirin (Aspirin EC), 1 TAB PO DAILY, (Reported) Atorvastatin Calcium (Atorvastatin Calcium), 1 TAB PO DAILY, (Reported) Carvedilol (Carvedilol), 1 TAB PO Q12H Cholecalciferol (Vitamin D3) (Vitamin D3), 2 CAP PO DAILY, (Reported) Empagliflozin (Jardiance), 1 TAB PO DAILY, (Reported) Furosemide* (Lasix*), 20 MG PO DAILY, (Reported) Gabapentin (Gabapentin), 1 TAB PO BID, (Reported) Olmesartan Medoxomil (Benicar), 1 TAB PO DAILY, (Reported) Sacubitril/Valsartan (Entresto 24 mg-26 mg Tablet), 1 TAB PO BID, (Reported) Semaglutide (Ozempic), 1 MG SQ Q7D, (Reported) Spironolactone (Spironolactone), 1 TAB PO DAILY, (Reported) Trazodone HCl (Trazodone HCl), 1 TAB PO BID, (Reported) [Lisinopril 2.5 Mg], 1 TAB PO DAILY, (Reported) Scheduled PRN Cyclobenzaprine HCl (Cyclobenzaprine HCl), 10 MG PO Q8H PRN for muscle spasms, (Reported) Hydrocodone Bit/Acetaminophen (Hydrocodon-Acetaminophn 10-325 tablet), 0.5-1 TAB PO Q12H PRN for pain, (Reported) Ondansetron 8mg ODT (Ondansetron Odt), 1 TAB PO TID PRN for nausea/vomiting Miscellaneous Medications Albuterol Sulfate/Budesonide (Airsupra 90-80 Mcg Inhaler), (Reported) Cephalexin (Cephalexin), (Reported) Discontinued Medications Hydrocodone Bit/Acetaminophen 5/325 MG (Aurora 5/325 MG), 1 TAB PO Q6H PRN for pain Discontinued Reason: Auto Discontinued Past Medical History Past Medical History: Congestive Heart Failure, Hypertension, Myocardial Infarction, *MUSCULOSKELETAL*, Chronic Back Pain, Extremity Fracture Past Surgical History: abdominal surgery, orthopedic surgeries Patient History: Patient reports no known family medical history. Alcohol Use: Sober Drug Use: methamphetamine Lives with: Other Lives In: Home Occupation: unemployed Review of Systems All Other Systems at this time: Reviewed and Negative Physical Exam Vital Signs: Temperature: 97.8, Source: Oral, Heart Rate: 85, Respiratory Rate: 17, BP: 97/69, Pulse Oximetry: 97, Weight: 148.300 Oxygen Flow Rate: 4.0 General Appearance: alert, WD/WN Neck: normal inspection, full range of motion Respiratory: lungs clear, normal breath sounds, no respiratory distress, decreased breath sounds Chest: no accessory muscle use Cardiovascular: regular rate, rhythm, no edema, no JVD, no murmur Gastrointestinal: normal palpation, non-tender Extremities: normal inspection, no calf tenderness Neurologic: oriented x4, memory intact Psychiatric: normal mood/affect Skin: normal color, warm/dry Progress Progress Note Patient was given aspirin and Zofran EN route. Initially they gave no pain medication because his blood pressure was low and then his brush it pressure became high. In the ED he appears comfortable sitting up smiling. Blood pressure has normalized to about 115. Initiating workup. Handing care over Dr. Murillo in the ED. Results/Orders Results/Orders Orders - MOON BARROS MD Chest,Single View (06/07/25 17:25) Monitor (06/07/25 17:25) Saline Lock (06/07/25 17:25) Oxygen (06/07/25 17:25) BMP (06/07/25 17:25) PBNP (06/07/25 17:25) Hs Troponin I W Calculations (06/07/25 19:25) Hs Troponin I W Calculations (06/07/25 20:25) Normal Saline 1000ml (0.9% Sodium Chlori (06/07/25 18:10) Completed Orders - MOON BARROS MD Chest,Single View (06/07/25 17:25) Cbc/Diff (06/07/25 17:25) Electrocardiogram (06/07/25 17:25) Hs Troponin I W Calculations (06/07/25 17:25) Vital Signs 06/07/25 06/07/25 06/07/25 06/07/25 17:26 17:43 17:43 17:43 Temp 97.8 97.8 Pulse 79 85 Resp 16 17 16 B/P (MAP) 113/79 97/69 (78) Pulse Ox 96 96 97 O2 Delivery Nasal Cannula* O2 Flow Rate 4.0 4.0 4.0 FiO2 N/A 06/07/25 18:08 Pulse 81 Resp 17 B/P (MAP) 91/67 (75) Pulse Ox 94 Laboratory Tests Test 06/07/25 17:35 White Blood Count 7.4 Red Blood Count 5.06 Hemoglobin 15.0 Hematocrit 44.4 Mean Corpuscular Volume 87.6 Mean Corpuscular Hemoglobin 29.5 Mean Corpuscular Hemoglobin Concent 33.7 Red Cell Distribution Width 15.3 H Platelet Count 229 Mean Platelet Volume 6.7 L Neutrophils (%) (Auto) 69.6 Lymphocytes (%) (Auto) 18.9 L Monocytes (%) (Auto) 9.8 Eosinophils (%) (Auto) 1.4 Basophils (%) (Auto) 0.3 Neutrophils # (Auto) 5.2 Lymphocytes # (Auto) 1.4 Monocytes # (Auto) 0.7 Eosinophils # (Auto) 0.1 Basophils # (Auto) 0.0 CBC Comment Troponin I High Sensitivity 22 Chemistry Comments EKG/XRAY/CT/US/VASC/MRI EKG : EKG Rate: 82 EKG: no ST T wave changes [place]: other (Paced rhythm) Medical Decision Making Additional Information Differential includes but isn't limited to: Myocardial infarction, dissection, tamponade, pneumothorax, pulmonary embolus, pneumonia, pulmonary edema Departure Impression: Primary Impression: Chest pain Qualified Codes: R07.9 - Chest pain, unspecified Referrals: NO PRIMARY CARE PROVIDER (PCP) Signature Scribe Signature: no Scribe used Attestation: No scribe used MOON BARROS MD Jun 07, 2025 18:06
--- NOTE | 2025-06-07 18:06 | RADIOLOGY REPORT ---
CHEST RADIOGRAPH Indication: CP Technique: Single frontal view of the chest was obtained COMPARISON: DI CHEST,SINGLE VIEW on DOS: 04/27/25, DI CHEST,SINGLE VIEW on DOS: 04/25/25, CHEST,SINGLE VIEW on DOS: 01/16/23 FINDINGS: Lines and Tubes: Left chest pacemaker Lungs: Clear Pleura: No effusion. No pneumothorax. Cardiomediastinal contours: Cardiomegaly Bones: Unremarkable IMPRESSION: No acute disease.
[2025-06-07] MEDS: normal saline 1000ml 1,000 ML IV ONE (18:12)
[2025-06-07 18:20] LABS: CREATININE 1.78 MG/DL (0.60-1.10); PRO BRAIN NATRIURETIC PEPTIDE 2201 PG/ML (0-125); TOTAL CARBON DIOXIDE 28.0 MMOL/L (24-32); eCRCL 51 ML/MIN; eGFR 39 ML/MIN
[2025-06-07 18:31] VITALS: TEMP 97.9
--- NOTE | 2025-06-07 18:39 | Physician Documentation ---
History of Present Illness ~ Chief Complaint: Chest Pain Stated Complaint: CHEST PAIN Time Seen by MD: 18:10 Primary Medical Doctor: PCP: Samantha vance. Tobacco Hanger: Dr. lane Mode of Arrival: EMS HPI Additional note by Keyon Basurto DO: I took over the care of this patient from previous physician. I reviewed any previous notes available, obtain my own history, review of systems and physical examination was performed by myself. This is a 59-year-old gentleman with a known history of congestive heart failure, recent placement of pacemaker and defibrillator by Dr. Gasper Lane, known history of gallbladder disease that he is supposed to follow-up with Dr. Peng anderson for cholecystectomy, but required preop clearance, currently pending cholecystectomy appointment, comes in for evaluation of left-sided chest pain, that began yesterday without any obvious trigger, trauma provocation. The particular palliating or aggravating factors were elicited with the gentleman. He does report that the pain is initially moderate now severe radiating to his back. It is traveling down into his abdomen. He did not attempt to treat it. He reported history of drug use, but supposedly has been clean for a year. Also reported recent episode of swimming for 5 hours. Medication Reconciliation Allergies: Coded Allergies: No Known Allergies (Unverified , 06/07/25) Scheduled Aspirin (Aspirin EC), 1 TAB PO DAILY, (Reported) Atorvastatin Calcium (Atorvastatin Calcium), 1 TAB PO DAILY, (Reported) Carvedilol (Carvedilol), 1 TAB PO Q12H Cholecalciferol (Vitamin D3) (Vitamin D3), 2 CAP PO DAILY, (Reported) Empagliflozin (Jardiance), 1 TAB PO DAILY, (Reported) Furosemide* (Lasix*), 20 MG PO DAILY, (Reported) Gabapentin (Gabapentin), 1 TAB PO BID, (Reported) Olmesartan Medoxomil (Benicar), 1 TAB PO DAILY, (Reported) Sacubitril/Valsartan (Entresto 24 mg-26 mg Tablet), 1 TAB PO BID, (Reported) Semaglutide (Ozempic), 1 MG SQ Q7D, (Reported) Spironolactone (Spironolactone), 1 TAB PO DAILY, (Reported) Trazodone HCl (Trazodone HCl), 1 TAB PO BID, (Reported) [Lisinopril 2.5 Mg], 1 TAB PO DAILY, (Reported) Scheduled PRN Cyclobenzaprine HCl (Cyclobenzaprine HCl), 10 MG PO Q8H PRN for muscle spasms, (Reported) Hydrocodone Bit/Acetaminophen (Hydrocodon-Acetaminophn 10-325 tablet), 0.5-1 TAB PO Q12H PRN for pain, (Reported) Ondansetron 8mg ODT (Ondansetron Odt), 1 TAB PO TID PRN for nausea/vomiting Miscellaneous Medications Albuterol Sulfate/Budesonide (Airsupra 90-80 Mcg Inhaler), (Reported) Cephalexin (Cephalexin), (Reported) Past Medical History Past Medical History: Congestive Heart Failure, Hypertension, Myocardial Infarction, *MUSCULOSKELETAL*, Chronic Back Pain, Extremity Fracture Past Surgical History: abdominal surgery, orthopedic surgeries Patient History: Patient reports no known family medical history. Alcohol Use: Sober Drug Use: methamphetamine Lives with: Other Lives In: Home Occupation: unemployed Review of Systems ROS 10 point review of systems was performed and unless noted above in HPI is negative for acute process/complaint. Physical Exam Vital Signs: Temperature: 97.9, Source: Oral, Heart Rate: 79, Respiratory Rate: 20, BP: 88/67, Pulse Oximetry: 94, Weight: 148.300 Oxygen Flow Rate: 3.0 Physical Exam GENERAL: Awake, alert, oriented, GCS 15, no apparent distress, non-toxic appearing, answers questions, follows commands appropriately. Examined in bed #4. HEENT: Atraumatic, normocephalic, pupils equal, extraocular muscles intact, sclerae anicteric, mucus membranes moist, oropharynx is clear, no stridor. NECK: supple, full active range of motion, trachea midline, no thyromegaly, no lymphadenopathy, no JVD. CARDIOVASCULAR: regular rate/rhythm, no murmurs/gallops/rubs, Pulses are 2+ in all extremities and symmetric. Capillary refill less than 2 seconds. PULMONARY: Nonlabored, good air movement ,no respiratory distress, speaking in full sentences, clear to auscultation bilaterally, no wheezing, no ronchi, no rales, no accessory muscle use. GASTROINTESTINAL: Soft, non-tender, non-distended, normal active bowel sounds, no organomegaly, no pulsatile masses, no CVA tenderness. NEUROLOGIC: Lucid with normal mental status. Normal facial symmetry. Moves all extremities symmetrically and with purpose. No truncal ataxia. Speech is fluid without evidence of dysarthria or aphasia, no focal deficits appreciated. MUSCULOSKELETAL: There is full range of motion of all extremities. There is no joint pain or joint swelling or joint erythema. There is no muscle pain or tenderness or swelling. EXTREMITIES: warm, well-perfused, no cyanosis, no clubbing, no edema, no acute deformities. Skin: warm, dry, no rashes or lesions, no jaundice, no petechiae orpurpura. No ecchymosis. PSYCHIATRIC: Normal affect, normal insight, normal concentration. Focused exam: Old well-healed midline abdominal scar noted. Left upper chest wall Pacemaker pocket appears to be clean, dry, intact. Progress Results/Orders Results/Orders Orders - KEYON BASURTO DO Cta Chest Abdomen Pelvis (06/07/25 18:34) Ultrasound Of Abdomen (06/07/25 21:42) Completed Orders - KEYON BASURTO DO Cta Chest Abdomen Pelvis (06/07/25 18:34) Ultrasound Of Abdomen (06/07/25 21:42) Medications Received in ER Medications (Trade) Dose Ordered Sig/Sandra Route PRN Reason Start Time Stop Time Status Last Admin Dose Admin Sodium Chloride 1,000 ml @ 1,000 mls/hr ONCE ONCE IV 06/07/25 18:10 06/07/25 19:09 DC 06/07/25 18:12 1,000 MLS/HR Vital Signs 06/07/25 06/07/25 06/07/25 06/07/25 17:26 17:43 17:43 17:43 Temp 97.8 97.8 Pulse 79 85 Resp 16 17 16 B/P (MAP) 113/79 97/69 (78) Pulse Ox 96 96 97 O2 Delivery Nasal Cannula* O2 Flow Rate 4.0 4.0 4.0 FiO2 N/A 06/07/25 06/07/25 06/07/25 06/07/25 18:08 18:31 19:03 19:24 Temp 97.9 Pulse 81 79 72 Resp 17 20 16 12 B/P (MAP) 91/67 (75) 88/67 (74) 90/65 (73) Pulse Ox 94 94 97 O2 Flow Rate 3.0 06/07/25 06/07/25 06/07/25 06/07/25 19:35 20:54 22:28 23:38 Pulse 73 70 72 66 Resp 16 18 16 20 B/P (MAP) 109/64 (79) 101/58 (72) 85/48 (60) 93/60 (71) Pulse Ox 95 91 94 92 O2 Flow Rate 0 1.0 1.0 Laboratory Tests Test 06/07/25 17:35 06/07/25 19:45 06/07/25 20:52 White Blood Count 7.4 Red Blood Count 5.06 Hemoglobin 15.0 Hematocrit 44.4 Mean Corpuscular Volume 87.6 Mean Corpuscular Hemoglobin 29.5 Mean Corpuscular Hemoglobin Concent 33.7 Red Cell Distribution Width 15.3 H Platelet Count 229 Mean Platelet Volume 6.7 L Neutrophils (%) (Auto) 69.6 Lymphocytes (%) (Auto) 18.9 L Monocytes (%) (Auto) 9.8 Eosinophils (%) (Auto) 1.4 Basophils (%) (Auto) 0.3 Neutrophils # (Auto) 5.2 Lymphocytes # (Auto) 1.4 Monocytes # (Auto) 0.7 Eosinophils # (Auto) 0.1 Basophils # (Auto) 0.0 CBC Comment Sodium Level 136 Potassium Level 4.2 Chloride Level 101 Carbon Dioxide Level 28.0 Anion Gap 7 L Blood Urea Nitrogen 21 H Creatinine 1.78 H Estimated GFR/1.73 m2 39 BUN/Creatinine Ratio 11.8 Glucose Level 77 Calcium Level 8.6 Total Bilirubin 0.9 Direct Bilirubin 0.2 Aspartate Amino Transf (AST/SGOT) 28 Alanine Aminotransferase (ALT/SGPT) 29 Alkaline Phosphatase 70 Troponin I High Sensitivity 22 20 22 Pro-B-Type Natriuretic Peptide 2201 H Total Protein 7.7 Albumin 3.2 L Globulin 4.5 H Albumin/Globulin Ratio 0.7 L Lipase 165 H Chemistry Comments Troponin I High Sens Percent Delta 9 10 Troponin I Hi Sens Absolute Change -2 2 EKG/XRAY/CT/US/VASC/MRI EKG : EKG Rate: 82 EKG: no ST T wave changes [place]: other (Paced rhythm) Additional Comment EKG was obtained and interpreted by myself showing atrial sensed ventricular paced rhythm, rate 82 a MS interval, wide expected, no QT prolongation, left axi s deviation no STEMI. Heart Score: Heart Score Response (Comments) Value History Moderate Suspicious 1 EKG Normal 0 Age 45-64 1 Risk Factors 1 or 2 risk factors 1 Troponin Normal limit 0 Total 3 Medical Decision Making Findings Facility Status: ED Holds, E process The plan was discussed with the patient, who demonstrates clear understanding of the plan and is in agreement with the plan unless otherwise noted in the chart. All questions have been answered, all concerns were addressed unless otherwise documented. I was available throughout their ED stay for frequent reassessment and questions. Differential Diagnoses (considered and possible or likely): [Differential diagnosis considered includes chest wall pain, pleurisy, pneumonia, pulmonary embolus, GERD, esophagitis, gastritis, anxiety, stress reaction, costochondritis, acute coronary syndrome, aortic dissection, pericarditis, myocarditis, or pneumothorax.] ??Differential Diagnoses (considered and unlikely, not requiring evaluation currently): [See above] MDM Data Please see [facility] for the following: Independent Historians and external Records Review. Historian: [Patient] Independent Historians: ?[Record review] Medication Management: [Reviewed medication list] Social History and determinants: [Reviewed] Please see the body of the note for the following: Any independent interpretations of ECG, imaging studies. All vitals signs/haemodynamics, ordered tests were independently reviewed and interpreted by myself. Nursing triage complaint and vitals reviewed, additional nursing notes were reviewed as available and I agree unless otherwise noted or documented in contradiction in the chart Vital Signs: Independently reviewed Labs: Independently interpreted Imaging: Independently interpreted Old Medical Records: Independently reviewed, see HPI for relevant summary and information Pulse Oximetry: [94%] interpreted as [normal on room air] by me [[place] Operator: [Regular Rate, Regular rhythm, no ectopy, NSR] reviewed and interpreted by me] Additionally notably showing: [Hemodynamics reviewed. The patient isn't febrile, not tachycardic, no evidence of sustained hypotension. No evidence of respiratory distress. Laboratory studies reviewed. CBC is normal. Chemistry is notable for elevated creatinine. BNP is elevated. He isn't hypoxic however. Lipase is also elevated concerning for mild pancreatitis. The troponin is negative 3 times. Liver function panel is normal. Ultrasound shows gallbladder stones but no acute cholecystitis.] Tests considered but not ordered include: [Initially did not consider ultrasound, however we will obtain given elevated lipase. Unfortunately on the basic metabolic panel was ordered per nursing protocol, CMP/liver function was obtained.] Social Determinants of Health Impact: Patient was evaluated in [facility], [facility] [place] to healthcare due to below par ratio of patient to medical providers. [] Comorbid Conditions Impacting Present Evaluation and Care/Treatment: [Multiple, see list, known gallbladder disease, known CHF] Management Discussions with other Healthcare Providers: [None] Treatment and Disposition Medication Management (Given or considered): []. See EMR for details Consideration for Hospitalization/Escalation/Deescalation of Care: Admission for observation has been considered, [however the patient is able to tolerate p.o., their symptoms are controlled, they are able to rely on oral medications, and their chief complaint/diagnosis can be managed on outpatient basis.] ?ED Course:?[Patient has been cleared from a cardiac standpoint troponins, recent negative stress test on in April of 2025 as well as recent echo.] ?Shared decision making:?[Patient is hemodynamically stable for discharge home with follow with their primary care provider. [ ] Specific and cautious return precautions provided and discussed with full understanding. Any incidental findings were also discussed and follow up recommendations given. [] All questions answered. Patient/family were able to verbalize back return precautions. Patient/family agree to plan. Copies of imaging and laboratory studies were provided.] Code status:?FULL Please see the full Electronic Medical Record for full details of nursing documentation, medications list, other records of complete past medical history and conditions, vital signs, laboratory studies, and any radiologic study interpretations by radiologists. Portions of this note were completed using [employer] dictation software and as a result there may exist minor errors in spelling. I have reviewed elements of past family and social history and agree as included in note. Departure Disposition: HOME / SELF CARE / HOMELESS Impression: Primary Impression: Chest pain Qualified Codes: R07.9 - Chest pain, unspecified Additional Impression: Elevated lipase Discharge Instructions: Nonspecific Chest Pain, Adult Referrals: NO PRIMARY CARE PROVIDER (PCP) Education Educated: Patient Educated regarding: diagnosis, treatment, prognosis, need for follow up Signature Scribe Signature: No scribe Attestation: This note accurately reflects clinical decisions, work performed by myself, DO MANE Garcia NICHOLAS M DO Jun 07, 2025 18:39
--- NOTE | 2025-06-07 19:42 | RADIOLOGY REPORT ---
EXAM: CT CTA CHEST ABDOMEN PELVIS W/ IV CONTRAST HISTORY: chest pain rad to back, HTN COMPARISON: DI CHEST,SINGLE VIEW on DOS: 06/07/25, CT CT ABDOMEN PELVIS W/ ORAL CONTRAST on DOS: , DI CHEST,SINGLE VIEW on DOS: 04/27/25, DI CHEST,SINGLE VIEW on DOS: 04/25/25, CT CT ABDOMEN PELVIS on DOS: 04/25/25 TECHNIQUE: Helical high resolution CT images of the chest, abdomen, and pelvis were performed with 10 0 ml omnipaque 350 IV contrast using CTA protocol. Sagittal and coronal reformatted images and 3-D ND P images were obtained. This CT exam was performed using one or more of the following dose reduction techniques: Automated exposure control, adjustment of the mA and/or kv according to patient size, or the use of iterative reconstruction techniques. Radiation Dose : CT Dose: CTDI volume is 26 mGy. Dose-length product is 1973 mGy*cm FINDINGS: There is mild linear scarring in the dependent left lower lobe. There is no pulmonary nodule or mass identified. There is no bronchiectasis or honeycombing. There is no pleural effusion. There is no p neumothorax. There is no pericardial effusion. The heart is mildly enlarged. There is a AICD present . There is bilateral gynecomastia. There is no thoracic aortic aneurysm or dissection. There is no pu lmonary arterial filling defect as far as the interlobar level. The visualized thyroid gland is unrem arkable. There is no pathologic lymphadenopathy in the chest by size criteria. There are numerous ol d healed rib fractures. There is surgical fixation of the left 6th, 7th, 8th, 9th ribs. There is no abdominal aortic aneurysm or dissection. The celiac, SMA, KIRSTIN, and renal arteries are pat ent. There is 1 right renal artery. There is 1 left renal artery. No visceral arterial aneurysm is id entified. The spleen is not enlarged. The liver is normal in size and contour. There are numerous gallstones w ithin the gallbladder. There is no pericholecystic edema. The gallbladder is not distended. The panc reas is within normal limits. The adrenal glands are normal. The kidneys enhance symmetrically. No s olid renal mass is identified. There is no hydronephrosis of either kidney. There is no pathologic l ymphadenopathy by size criteria in the abdomen or pelvis. The urinary bladder is unremarkable. The p rostate and seminal vesicles are within normal limits. No free fluid is identified in the abdomen or pelvis. There is extensive sigmoid diverticulosis without evidence of diverticulitis. The colonic st ool burden is small. The appendix is normal. There are numerous complex midline ventral abdominal wal l fascial defects with herniating fat from the subxiphoid region to the umbilicus. A small portion of the transverse colon herniates through an approximately 3.9 cm fascial defect into the subcutaneous fat. There is no inflammatory stranding or fluid identified in the herniated fat. There is no colonic wall thickening. There is mild edema in the deep subcutaneous fat posterior to the right posterior i liac crest, nonspecific. There is no significant distention of the small bowel to suggest bowel obstr uction. No acute osseous abnormality is identified. IMPRESSION: No significant stenosis, aneurysmal dilatation or dissection about the arteries of the chest, abdomen , or pelvis. Numerous complex midline ventral abdominal wall fascial defects from the subxiphoid region to the umb ilicus. Most of these contain fat but there is a small portion of transverse colon herniating throug h a small fascial defect in the epigastric region. There is no bowel wall thickening or inflammatory change to suggest strangulation. Correlate clinically and with physical exam for incarceration. Cholelithiasis without evidence of cholecystitis. Extensive sigmoid diverticulosis without evidence of diverticulitis.
--- NOTE | 2025-06-07 23:02 | RADIOLOGY REPORT ---
ABDOMINAL ULTRASOUND CLINICAL HISTORY: epigastric abd pain, known stones TECHNIQUE: Multiple grayscale and color Doppler ultrasound images were obtained of the abdomen. WID: COMPARISON: CTA chest abdomen and pelvis from same day FINDINGS: Liver and Biliary System: Increased echogenicity, Mildly Enlarged measuring 19 cm. No focal hepati c observations. No intrahepatic bile duct dilatation. The common duct measures 0. cm at the rosanne h epatis. The gallbladder is normal caliber with cholelithiasis. No gallbladder wall thickening or sonographic Boothe's sign.. Pancreas: Not well seen due to overlying bowel gas Kidneys: The right kidney is 11.7 cm. No hydronephrosis, increased echogenicity, shadowing stone, o r focal lesion. IVC: Visualized portions are normal in caliber. IMPRESSION: Cholelithiasis without acute cholecystitis or biliary ductal dilatation. Mild hepatomegaly with mild hepatic steatosis.
[2025-06-08 00:58] VITALS: BP 137/99; PULSE 65; RESP 16; O2SAT 93
== END 2025-06-08 01:11 | disposition home or self-care (01) ==
LOC: ER 17:25
DX: R07.89 Other chest pain (principal); I11.0 Hypertensive heart disease with heart failure; I50.9 Heart failure, unspecified; I25.2 Old myocardial infarction; F15.90 Other stimulant use, unspecified, uncomplicated; Z95.0 Presence of cardiac pacemaker; Z79.82 Long term (current) use of aspirin; Z79.899 Other long term (current) drug therapy; Z56.0 Unemployment, unspecified
CPT/HCPCS: 36415; 71045; 71275; 74174; 76700; 80048; 80076; 83690; 83880; 84484; 85025; 93005; 96360; 99285; J7030; Q9967

== ENCOUNTER 2025-07-13 06:17 | Inpatient (IN) | payer MEDICAID ==
--- NOTE | 2025-07-06 14:17 | RADIOLOGY REPORT ---
DI CHEST,TWO VIEWS CLINICAL HISTORY: PREOP COMPARISON: DI CHEST,SINGLE VIEW on DOS: 06/07/25, DI CHEST,SINGLE VIEW on DOS: 04/27/25, DI CHEST,SING LE VIEW on DOS: 04/25/25, CHEST,SINGLE VIEW on DOS: 01/16/23 TECHNIQUE: Frontal and lateral view of the chest was obtained FINDINGS: Lines and Tubes: Left sided pacemaker Lungs: No focal consolidation. Pleura: No effusion. No pneumothorax. Cardiomediastinal contours: Unremarkable Bones: ORIF left ribs IMPRESSION: No acute cardiopulmonary disease.
[2025-07-06 14:22] LABS: MEAN PLATELET VOLUME 7.2 FL (7.4-10.4); PRE OP HEMATOCRIT 49.5 % (42.0-52.0); PRE OP HEMOGLOBIN 16.6 g/dL (14.0-17.9); PRE OP PLATELET COUNT 187 X10'3 (140-440); PRE OP WHITE BLOOD COUNT 8.1 10'3 (4.8-10.8); RED CELL DISTRIBUTION WIDTH 16.5 % (11.5-14.5)
[2025-07-06 14:23] LABS: LEUKOCYTE ESTERASE ,URINE NEGATIVE (Neg); NITRITES, URINE NEGATIVE (Neg); OCCULT BLOOD,URINE NEGATIVE (Neg)
[2025-07-06 14:34] LABS: PRE OP INR 1.0 INR; PRE OP PARTIAL THROMB. TIME 28.0 SECONDS (22-32); PRE OP PROTIME 10.3 SECONDS (9.0-12.0)
[2025-07-06 14:35] LABS: UA COLLECTION TYPE NON-SPECIFIED
[2025-07-06 14:43] LABS: MUCUS STRANDS NONE SEEN /LPF (Neg); SQUAMOUS EPITHELIAL CELL,UR FEW /LPF (FEW)
[2025-07-06 14:44] LABS: CREATININE 1.35 MG/DL (0.60-1.10); PRE OP ALT 26 U/L (30-65); PRE OP ANION GAP 11 (8-16); PRE OP AST 17 U/L (10-37); PRE OP BILIRUB, TOTAL 0.8 MG/DL (0.0-1.0); PRE OP GLUCOSE 107 MG/DL (70-104); PRE OP POTASSIUM 4.2 MMOL/L (3.4-5.1); PRE OP SODIUM 139 MMOL/L (135-145); TOTAL CARBON DIOXIDE 24.1 MMOL/L (24-32); eGFR 54 ML/MIN
[2025-07-13] VITALS (34 sets, daily range): BP systolic 95–156; BP diastolic 47–106; PULSE 71–111; RESP 12–22; TEMP 97.4–98.1; O2SAT 90–98
[~2025-07-13] VITALS: Ht 188 cm; Wt 143.2 kg
[~2025-07-13 06:17] MED LIST changes: +ALBU10.7; -ASPI81TA52 PO; +ATOM80CA3 PO; -CHOL100046 PO; -COR3.125T PO; -CYCL-394 PO; -FURO-150 PO; -LISINOPRIL 2.5 MG PO; +SACU1TAB PO; +SEMA1PEN3 SQ; +SERT-434 PO; +TRAZ-256 PO
[2025-07-13] MEDS ORDERED: BUPIVAcaine/PF 2.5mg/ml (0.25%) 10ml vial ONE (06:45)
[2025-07-13] MEDS: ringers solution, lacted 1,000 ML IV SCH ×2 (06:47→09:20)
[2025-07-13] MEDS ORDERED: midazolam 1 mg/ML 2ml injection ONE (08:26)
[2025-07-13] MEDS ORDERED: fentaNYL /PF 50mcg/ml 5ml ampule ONE (08:26)
[2025-07-13] MEDS: ceFOXitin 2GM-NS 100mL ADDvant 100 ML IV ONE (08:30)
[2025-07-13] MEDS ORDERED: albumin (Human) 5% 250ml 250 ML IV ONE (08:55)
[2025-07-13] MEDS ORDERED: HYDROmorphone/PF 0.2 MG/ML SYRINGE IV PRN (09:20)
[2025-07-13] MEDS ORDERED: hydrALAZINE 20mg/ml inj. IV PRN (09:20)
[2025-07-13] MEDS ORDERED: ondansetron/PF 4mg/2ml inj IV PRN ×2 (09:20→11:20)
[2025-07-13] MEDS: BUPIVAcaine/PF 2.5mg/ml (0.25%) 10ml vial IJ ONE (09:26)
[2025-07-13] MEDS ORDERED: rocuronium 10mg/ml inj IV ONE ×3 (10:07→10:12)
[2025-07-13] MEDS ORDERED: propofol inj 20 ML IV ONE (10:07)
[2025-07-13] MEDS ORDERED: vancomycin 1,000mg inj ONE (10:25)
[2025-07-13] MEDS ORDERED: glycopyrrolate 0.2mg/ml inj ONE (10:38)
--- NOTE | 2025-07-13 11:03 | OPERATIVE REPORT ---
Operative Report Providers to CC ~ Date of Procedure: Jul 13, 2025 Pre-Operative Diagnosis: incisional hernia Post-Operative Diagnosis 5 incisional hernias-3 cm or less Procedure Performed robo repair multiple incisional hernias Surgeon: edilson greene Anesthesiologist: Nicholas Fair Type of Anesthesia: General Findings: 5 incisional hernias-extensive adhesions Estimated Blood Loss: 50 ml Specimen Removed: none GUERA WASHBURN MD Jul 13, 2025 11:03
[2025-07-13] MEDS: acetaminophen 1,000mg/100ml IV 100 ML IV PRN (11:04)
[2025-07-13] MEDS: morphine 4 MG/ML inj SYRINge IV PRN (11:05)
[2025-07-13] MEDS: HYDROmorphone/PF 0.2 MG/ML SYRINGE IV PRN (11:09)
[2025-07-13] MEDS ORDERED: metoclopramide 5 mg/ml inj IV PRN (11:20)
[2025-07-13] MEDS ORDERED: HYDROmorphone inj. 0.5 MG/0.5 ML DISP.SYRIN IV PRN (11:20)
[2025-07-13] MEDS ORDERED: HYDROcodone/acetaminophen 10/325mg tab PO PRN (11:20)
[2025-07-13] MEDS: ketorolac trometh 30MG/ML vial 30 MG/ML VIAL IV ONE (11:21)
--- NOTE | 2025-07-13 12:23 | RADIOLOGY REPORT ---
EXAM: DI CHEST,SINGLE VIEW Indication: POST OP Technique: Single frontal view of the chest was obtained Comparison: DI CHEST,SINGLE VIEW on DOS: 06/07/25, DI CHEST,SINGLE VIEW on DOS: 04/27/25, DI CHEST,SING LE VIEW on DOS: 04/25/25, CHEST,SINGLE VIEW on DOS: 01/16/23 FINDINGS: Lines and Tubes: Cardiac pacemaker projects over the left chest wall. Lungs: Pulmonary vascular congestion. Pleura: Small left pleural effusion. No pneumothorax. Cardiomediastinal contours: Cardiomegaly. Bones: No acute osseous abnormality. Postsurgical changes in the left ribs. IMPRESSION: Pulmonary vascular congestion. Cardiomegaly.
[2025-07-13] MEDS: HYDROcodone/acetaminophen 10/325mg tab PO PRN (12:41)
[2025-07-13] MEDS: HYDROmorph/NS 0.2 mg/ml PCA 100 ML IV SCH (13:53)
[2025-07-13] MEDS: ketorolac trometh 15mg/ml vial 15 MG/ML ML IV SCH (14:00)
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
[2025-07-13] MEDS ORDERED: ceFAZolin inj. 1,000 MG in dextrose 5%-water 50ml 50 ML IV SCH (16:00)
[2025-07-13] MEDS: ceFAZolin 1GM/D5W- ADD-VANTAGE 50 ML IV SCH (16:59)
[2025-07-13] MEDS: potassium Cl 20mEq in D5-NS 1,000 ML IV SCH (17:08)
[2025-07-14] VITALS (7 sets, daily range): BP systolic 11–155; BP diastolic 59–80; PULSE 75–96; RESP 14–22; TEMP 97.7–98.1; O2SAT 93–100
[2025-07-14] MEDS: potassium CL 20mEq in D5-1/2NS 1,000 ML IV ONE (00:37)
--- NOTE | 2025-07-14 07:00 | RADIOLOGY REPORT ---
CHEST RADIOGRAPH Indication: POST OP Technique: Single frontal view of the chest was obtained COMPARISON: DI CHEST,SINGLE VIEW on DOS: 07/13/25, DI CHEST,TWO VIEWS on DOS: 07/06/25, DI CHEST,SINGLE VIEW on DOS: 06/07/25, DI CHEST,SINGLE VIEW on DOS: 04/27/25, DI CHEST,SINGLE VIEW on DOS: 04/25/25 FINDINGS: Lines and Tubes: None. Left anterior chest wall cardiac pacing device. Lungs: Clear Pleura: No effusion. No pneumothorax. Cardiomediastinal contours: Cardiomegaly. Bones: Unremarkable IMPRESSION: 1. Cardiomegaly.
--- NOTE | 2025-07-14 12:43 | PROGRESS NOTE ---
Progress Note ID Providers to CC ~ Progress Note Progress Note: complains of pain/vss/abd-mild distention/no labs a/p 1. s/p repair multiple incisional hernias-slow progress/cont supportive care GUERA WASHBURN MD Jul 14, 2025 12:43
[2025-07-14] MEDS: ceFOXitin 2GM-NS 100mL ADDvant 100 ML IV SCH (14:25)
[2025-07-15] VITALS (7 sets, daily range): BP systolic 127–159; BP diastolic 73–96; PULSE 85–92; RESP 16–22; TEMP 97–97.9; O2SAT 95–97
[2025-07-15] MEDS: PCA WASTE DOCUMENTATION 1 MG ML MC SCH (02:11)
[2025-07-15] MEDS: POTASSIUM CL IV ONE (02:59)
[2025-07-15] MEDS: D5 IV ONE (02:59)
[2025-07-15] MEDS: [UNRECOGNIZED DRUG - OTHER] IV ONE (02:59)
[2025-07-15] MEDS: potassium Cl 20mEq in NS 1,000 ML IV ONE (03:36)
--- NOTE | 2025-07-15 06:07 | RADIOLOGY REPORT ---
CHEST RADIOGRAPH Indication: POST OP Technique: Single frontal view of the chest was obtained Comparison: DI CHEST,SINGLE VIEW on DOS: 07/14/25, DI CHEST,SINGLE VIEW on DOS: 07/13/25, DI CHEST,TWO EWS on DOS: 07/06/25 IMPRESSION: Heart is enlarged there stool lead left cardiac defibrillator. Postsurgical changes of the left ribs with hardware. No sizable effusion or pneumothorax.
[2025-07-15] MEDS ORDERED: HYDROmorph/NS 0.2 mg/ml PCA 100 ML IV SCH (14:05)
[2025-07-15] MEDS: HYDROmorph/NS 0.2 mg/ml PCA 100 ML IV SCH (14:43)
--- NOTE | 2025-07-15 17:13 | PROGRESS NOTE ---
Progress Note ID Providers to CC ~ Progress Note Progress Note: pain improving/advance diet GUERA WASHBURN MD Jul 15, 2025 17:13
[2025-07-15] MEDS: magnesium hydroxide 30ml (MOM) UD suspension PO SCH (19:33)
[2025-07-15] MEDS: metoclopramide 5 mg/ml inj IV SCH (19:34)
[2025-07-15 20:05] LABS: MEAN PLATELET VOLUME 6.9 FL (7.4-10.4); RED CELL DISTRIBUTION WIDTH 16.4 % (11.5-14.5)
[2025-07-15 20:19] LABS: CREATININE 1.08 MG/DL (0.60-1.10); TOTAL CARBON DIOXIDE 23.8 MMOL/L (24-32); eCRCL 84 ML/MIN; eGFR 70 ML/MIN
[2025-07-15] MEDS: enoxaparin 40mg/0.4ml syringe SUBCUT SCH (21:20)
[2025-07-16] VITALS (8 sets, daily range): BP systolic 108–144; BP diastolic 54–89; PULSE 70–87; RESP 16–18; TEMP 97.3–98; O2SAT 95–98
[2025-07-16 06:50] LABS: MEAN PLATELET VOLUME 7.0 FL (7.4-10.4); RED CELL DISTRIBUTION WIDTH 16.6 % (11.5-14.5)
[2025-07-16 07:13] LABS: CREATININE 1.03 MG/DL (0.60-1.10); TOTAL CARBON DIOXIDE 24.3 MMOL/L (24-32); eCRCL 88 ML/MIN; eGFR 73 ML/MIN
--- NOTE | 2025-07-16 07:49 | RADIOLOGY REPORT ---
CHEST RADIOGRAPH Indication: POST OP Technique: Single frontal view of the chest was obtained Comparison: DI CHEST,SINGLE VIEW on DOS: 07/15/25, DI CHEST,SINGLE VIEW on DOS: 07/14/25, DI CHEST,SINGLE VIEW on DOS: 07/13/25, DI CHEST,TWO VIEWS on DOS: 07/06/25, DI CHEST,SINGLE VIEW on DOS: 06/07/25, DI CH EST,SINGLE VIEW on DOS: 07/15/25 FINDINGS: Heart is enlarged there stool lead left cardiac defibrillator. Postsurgical changes of the left ribs with hardware. No sizable effusion or pneumothorax. IMPRESSION: No acute disease.
[2025-07-16] MEDS: normal saline 1000ml 1,000 ML IV SCH (13:55)
[2025-07-16] MEDS: magnesium citrate 296ml oral solution PO ONE (13:55)
--- NOTE | 2025-07-16 15:13 | PROGRESS NOTE ---
Progress Note ID Providers to CC ~ Progress Note Progress Note: persistent pain/cont supportive care GUERA WASHBURN MD Jul 16, 2025 15:13
[2025-07-16] MEDS: ketorolac trometh 30MG/ML vial 30 MG/ML VIAL IV SCH (19:44)
[2025-07-17] VITALS (7 sets, daily range): BP systolic 125–154; BP diastolic 64–91; PULSE 69–89; RESP 13–19; TEMP 97.1–98; O2SAT 93–98
--- NOTE | 2025-07-17 07:52 | RADIOLOGY REPORT ---
CHEST RADIOGRAPH Indication: POST OP Technique: Single frontal view of the chest was obtained COMPARISON: DI CHEST,SINGLE VIEW on DOS: 07/16/25, DI CHEST,SINGLE VIEW on DOS: 07/15/25, DI CHEST,SINGLE VIEW on DOS: 07/14/25, DI CHEST,SINGLE VIEW on DOS: 07/13/25, DI CHEST,TWO VIEWS on DOS: 07/06/25 FINDINGS: Lines and Tubes: Left chest AICD Lungs: Clear Pleura: No effusion. No pneumothorax. Cardiomediastinal contours: Cardiomegaly Bones: Surgical fixation of the left ribs. IMPRESSION: No significant interval change
[2025-07-17 09:08] LABS: MEAN PLATELET VOLUME 7.2 FL (7.4-10.4); RED CELL DISTRIBUTION WIDTH 16.6 % (11.5-14.5)
--- NOTE | 2025-07-17 19:57 | PROGRESS NOTE ---
Progress Note ID Providers to CC ~ Progress Note Progress Note: slow progress/dc utilization management um nurse GUERA WASHBURN MD Jul 17, 2025 19:57
[2025-07-17] MEDS: HYDROmorphone inj. 0.5 MG/0.5 ML DISP.SYRIN IV PRN (20:34)
[2025-07-18 07:00] VITALS: BP 146/90; PULSE 71; RESP 16; TEMP 97.9; O2SAT 92
[2025-07-18 07:15] VITALS: RESP 18
--- NOTE | 2025-07-18 08:15 | RADIOLOGY REPORT ---
CHEST RADIOGRAPH Indication: POST OP Technique: Single frontal view of the chest was obtained Comparison: DI CHEST,SINGLE VIEW on DOS: 07/17/25, DI CHEST,SINGLE VIEW on DOS: 07/16/25, DI CHEST,SINGLE VIEW on DOS: 07/15/25, DI CHEST,SINGLE VIEW on DOS: 07/14/25, DI CHEST,SINGLE VIEW on DOS: 07/13/25, DI CHEST,SINGLE VIEW on DOS: 07/17/25 FINDINGS: Lines and Tubes: Left chest AICD Lungs: Clear Pleura: No effusion. No pneumothorax. Cardiomediastinal contours: Cardiomegaly Bones: Surgical fixation of the left ribs. IMPRESSION: No significant interval change
[2025-07-18 10:00] VITALS: BP 123/64; PULSE 75; RESP 24; TEMP 98.2; O2SAT 98
--- NOTE | 2025-07-18 14:43 | PROGRESS NOTE ---
Progress Note ID Providers to CC ~ Progress Note Progress Note: slow progress/pt to evaluate GUERA WASHBURN MD Jul 18, 2025 14:43
[2025-07-18 18:00] VITALS: BP 127/88; PULSE 73; RESP 22; TEMP 97.8; O2SAT 93
[2025-07-18 20:50] VITALS: RESP 18
[2025-07-18 22:27] VITALS: BP 164/96; PULSE 70; RESP 16; TEMP 98; O2SAT 94
--- NOTE | 2025-07-20 19:51 | PROGRESS NOTE ---
DATE: 07/19/2025 DICTATING PHYSICIAN: Jarad Bernal MD SUBJECTIVE: A 60-year-old status post robotic repair of multiple incisional hernias. Remains on the surgical floor. Otherwise, doing well. PLAN: Discharge to home today. Jarad Bernal MD TID: [id number] RECEIPT: [id number] FELICIANO/CAROL ANN/MATTHEW
== END 2025-07-19 06:05 | disposition home or self-care (01) | DRG 224 ==
LOC: PAS 06:17 → UNDOADMIN 11:20 → PCU 3S 11:20 → SUR 3N 07-17 16:45
PROVIDERS: ADMIT Surgery; ATTEND Surgery
PROC: 0DNW0ZZ Release Peritoneum, Open Approach (ICD-10-PCS; 2025-07-13)
PROC: 8E0W0CZ Robotic Assisted Procedure of Trunk Region, Open Approach (ICD-10-PCS; 2025-07-13)
PROC: 0WUF0JZ Supplement Abdominal Wall with Synthetic Substitute, Open Approach (ICD-10-PCS; principal; 2025-07-13 08:16)
DX: K43.2 Incisional hernia without obstruction or gangrene (principal); K66.0 Peritoneal adhesions (postprocedural) (postinfection)
CPT/HCPCS: 36415; 71045; 71046; 80048; 80053; 81001; 82948; 85025; 85610; 85730; 86885; 86900; 86901; 87081; 97116; 97161; 97530; A4215; A4615; A4618; A6212; A6213; A6258; A6449; C1781; G0378; J0131; J0690; J0694; J1171; J1650; J1885; J2250; J2270; J2704; J2710; J2765; J3010; J3373; J3480; J3490; J7030; J7120; P9045

== ENCOUNTER 2025-09-09 15:38 | Emergency (ER) | payer MEDICAID ==
[~2025-09-09] VITALS: Ht 188 cm; Wt 140.3 kg
[2025-09-09 15:47] VITALS: TEMP 97
[2025-09-09 16:07] LABS: LEUKOCYTE ESTERASE ,URINE NEGATIVE (Neg); NITRITES, URINE NEGATIVE (Neg); OCCULT BLOOD,URINE NEGATIVE (Neg)
[2025-09-09 16:10] LABS: UA COLLECTION TYPE CLN CATCH MIDSTREAM
[2025-09-09 16:15] LABS: SQUAMOUS EPITHELIAL CELL,UR FEW /LPF (FEW)
[2025-09-09 16:26] LABS: MEAN PLATELET VOLUME 7.0 FL (7.4-10.4); RED CELL DISTRIBUTION WIDTH 16.2 % (11.5-14.5)
[2025-09-09 16:37] LABS: CREATININE 1.41 MG/DL (0.60-1.10); TOTAL CARBON DIOXIDE 22.8 MMOL/L (24-32); eCRCL 64 ML/MIN; eGFR 51 ML/MIN
--- NOTE | 2025-09-09 17:57 | RADIOLOGY REPORT ---
Procedure: US ULTRASOUND OF [place] Study Date and Requested Time: 09/09/2025 05:07 PM History: abdominal pain Comparison: US ULTRASOUND OF ABDOMEN on DOS: 06/07/25, US ABDOMEN LIMITED on DOS: 04/25/25 and CTA chest, abdomen and pelvis 06/07/2025 Technique: Multiple high resolution otero-scale images obtained of the periumbilical region areas of interest with color Doppler for evaluation of blood flow and vascularity as indicated. Findings /impression: 3.7 x 1.7 x 3.4 cm heterogeneous lesion over the left periumbilical region area of interest with peripheral vascularity. No obvious neck is visualized. No movement of tissue with probe pressure or Valsalva. When correlated with CTA chest abdomen and pelvis of 06/07/2025 finding may represent a large fat containing periumbilical hernia. CT should be considered for further evaluation. No significant abnormality over the right periumbilical area of pain.
--- NOTE | 2025-09-09 18:13 | Physician Documentation ---
History of Present Illness Chief Complaint: Abdominal Pain Stated Complaint: GALLBLADDER ISSUE Time Seen by MD: 15:55 OK to notify your PCP?: Yes Primary Medical Doctor: PCP: Samantha vance. [employer] Person: Dr. lane Source: patient Mode of Arrival: POV Exam Limitations: no limitations HPI 60-year-old male with chief complaint pain to the left of his umbilicus stating that he knows that he has gallstones and he was concerned that he may be having a gallbladder problem. He denies any pain in his right upper quadrant. He states the pain in his area tends to come and go. He did have a CT scan done yesterday and we have Daron and has an appointment with his primary care guillermo leyva tomorrow to review the results. He states that today the pain just really intensified which is why he decided to come to the ER. No nausea, vomiting, diarrhea, constipation, urinary symptoms, fever, or chills. Medication Reconciliation Allergies: Coded Allergies: No Known Allergies (Unverified , 09/09/25) Past Medical History Past Medical History: Congestive Heart Failure, Hypertension, Myocardial Infarction, *MUSCULOSKELETAL*, Chronic Back Pain, Extremity Fracture Past Surgical History: abdominal surgery, orthopedic surgeries Patient History: Patient reports no known family medical history. Smoking Status: Never smoker Alcohol Use: Sober Drug Use: methamphetamine Lives with: Other Lives In: Home Occupation: unemployed Review of Systems All Other Systems at this time: Reviewed and Negative Physical Exam Vital Signs: Temperature: 97.0, Source: Temporal, Heart Rate: 87, Respiratory Rate: 20, BP: 139/80, Pulse Oximetry: 92, Weight: 140.300 Oxygen Flow Rate: 0 Physical Exam General Appearance: Alert, WD/WN. NAD. HEENT: NCAT, PERRL, EOMI. Neck: Supple, trachea midline. Cardiovascular: RRR. No m/r/g. Lungs: CTAB. Breathing unlabored Abdomen: Soft, nondistended, vertical scar down the center of abdomen into the left of the scar just proximal to the umbilicus and lateral to the umbilicus there is a firm palpable subcutaneous mass that is mobile, mild tenderness no overlying erythema, no guarding or rebound. Extremities: Normal inspection. No edema. Skin: Warm/dry, normal color Neurological: Alert and oriented x4, normal gait. Psychiatric: Affect congruent with mood. Procedures Procedures Procedure: [facility]OUND OF [facility] Study Date and Requested Time: 09/09/2025 05:07 PM History: abdominal pain Comparison: US ULTRASOUND OF ABDOMEN on DOS: 06/07/25, US ABDOMEN LIMITED on DOS: 04/25/25 and CTA chest, abdomen and pelvis 06/07/2025 Technique: Multiple high resolution otero-scale images obtained of the periumbilical region areas of interest with color Doppler for evaluation of blood flow and vascularity as indicated. Findings /impression: 3.7 x 1.7 x 3.4 cm heterogeneous lesion over the left periumbilical region area of interest with peripheral vascularity. No obvious neck is visualized. No movement of tissue with probe pressure or Valsalva. When correlated with CTA chest abdomen and pelvis of 06/07/2025 finding may represent a large fat containing periumbilical hernia. CT should be considered for further evaluation. No significant abnormality over the right periumbilical area of pain. Progress Results/Orders Reviewed/noted all lab results: Yes Results/Orders Orders - RUBEN MCCAIN Ultrasound Of Abdomen (09/09/25 16:50) Completed Orders - RUBEN MCCAIN Ultrasound Of Abdomen (09/09/25 16:50) Vital Signs 09/09/25 09/09/25 09/09/25 09/09/25 15:47 16:03 16:14 17:40 Temp 97.0 Pulse 94 92 87 Resp 16 18 20 20 B/P (MAP) 127/92 139/80 (99) 139/80 (99) Pulse Ox 95 92 O2 Flow Rate 0 0 Laboratory Tests Test 09/09/25 15:52 09/09/25 16:00 Urine Specimen Description Cln catch midstream Urine Color Yellow Urine Clarity Clear Urine pH 5.5 Urine Specific [place] 1.020 Urine Protein Negative Urine Glucose (UA) >=1000 H Urine Ketones Negative Urine Occult Blood Negative Urine Nitrite Negative Urine Bilirubin Negative Urine Urobilinogen 0.2 Urine Leukocyte Esterase Negative Urine RBC None seen Urine WBC None seen Urine Squamous Epithelial Cells Few Urine Bacteria None seen Urine Mucus Urine Culture Indicated Not ind Volume Urine Centrifuged 10 ml Urine Comment White Blood Count 8.6 Red Blood Count 5.35 Hemoglobin 16.3 Hematocrit 47.0 Mean Corpuscular Volume 87.8 Mean Corpuscular Hemoglobin 30.4 Mean Corpuscular Hemoglobin Concent 34.6 Red Cell Distribution Width 16.2 H Platelet Count 259 Mean Platelet Volume 7.0 L Neutrophils (%) (Auto) 68.4 Lymphocytes (%) (Auto) 21.4 Monocytes (%) (Auto) 8.7 Eosinophils (%) (Auto) 1.0 Basophils (%) (Auto) 0.5 Neutrophils # (Auto) 5.9 Lymphocytes # (Auto) 1.8 Monocytes # (Auto) 0.8 Eosinophils # (Auto) 0.1 Basophils # (Auto) 0.0 CBC Comment Sodium Level 135 Potassium Level 4.4 Chloride Level 100 Carbon Dioxide Level 22.8 L Anion Gap 12 Blood Urea Nitrogen 25 H Creatinine 1.41 H Estimated GFR/1.73 m2 51 BUN/Creatinine Ratio 17.7 Glucose Level 103 Calcium Level 9.2 Total Bilirubin 0.7 Aspartate Amino Transf (AST/SGOT) 15 Alanine Aminotransferase (ALT/SGPT) 13 Alkaline Phosphatase 98 Total Protein 8.9 H Albumin 3.5 Globulin 5.4 H Albumin/Globulin Ratio 0.6 L Lipase 35 Chemistry Comments Medical Decision Making Additional information obtaine: N/A Findings n/a Differential Dx:Considerations: AAA, Angina/HI, Aortic dissection, Appendicitis, Bowel obstruction, Cholangitis, Cholelithasis, Constipation, Diverticular disease, Esophageal rupture, Esophagitis, Gastritis/PUD, Gastroenteritis, GI hemorrhage, Hernia, Hepatitis, Inflammatory BD, Ischemic bowel, Pancreatitis, Porphyria, Testicular torsion, Trauma, intraabdominal, Uri nary obstruction, Urinary tract infection, Urolithiasis, Other Departure Impression: Primary Impression: Abdominal pain Qualified Codes: R10.33 - Periumbilical pain Condition: Stable Discharge Instructions: Abdominal Pain (Nonspecific) Additional Instructions: FINDINGS ON U/S BELOW I AM NOT GOING TO DO A CT SCAN HERE YOU HAD A CT SCAN YESTERDAY IN [facility] AND I DO NOT WANT TO RADIATE YOU AGAIN YOU HAVE HAD SEVERAL CT SCANS AND AT THIS TIME THERE IS NO EVIDENCE FOR SURGICAL EMERGENCY F/U WITH YOUR PCP WHICH YOU REPORT YOU HAVE AN APPOINTMENT TOMORROW TO DO SO THE LUMP MAY BE DUE TO HERNIA BUT IT APPEARS FAT CONTAINING, DOES NOT APPEAR TO CONTAIN BOWEL, BUT THIS CAN STILL GENERATE PAIN Procedure: [facility]OUND OF [facility] Study Date and Requested Time: 09/09/2025 05:07 PM History: abdominal pain Comparison: US ULTRASOUND OF ABDOMEN on DOS: 06/07/25, US ABDOMEN LIMITED on DOS: 04/25/25 and CTA chest, abdomen and pelvis 06/07/2025 Technique: Multiple high resolution otero-scale images obtained of the periumbilical region areas of interest with color Doppler for evaluation of blood flow and vascularity as indicated. Findings /impression: 3.7 x 1.7 x 3.4 cm heterogeneous lesion over the left periumbilical region area of interest with peripheral vascularity. No obvious neck is visualized. No movement of tissue with probe pressure or Valsalva. When correlated with CTA chest abdomen and pelvis of 06/07/2025 finding may represent a large fat containing periumbilical hernia. CT should be considered for further evaluation. No significant abnormality over the right periumbilical area of pain. Referrals: NO PRIMARY CARE PROVIDER (PCP) Education Educated: Patient Educated regarding: diagnosis, treatment, need for follow up Signature Scribe Signature: x Attestation: RUBEN Mcintyre Sep 09, 2025 18:13
[2025-09-09 18:31] VITALS: BP 130/90; PULSE 83; RESP 20; O2SAT 97
== END 2025-09-09 18:33 | disposition home or self-care (01) ==
LOC: ER 15:38
DX: R10.9 Unspecified abdominal pain (principal); I11.0 Hypertensive heart disease with heart failure; I50.9 Heart failure, unspecified; I25.2 Old myocardial infarction; F15.90 Other stimulant use, unspecified, uncomplicated; F10.90 Alcohol use, unspecified, uncomplicated; Y90.9 Presence of alcohol in blood, level not specified
CPT/HCPCS: 36415; 76705; 80053; 81001; 83690; 85025; 99284